=== PATIENT | male | born 1945 | race African-American/Black ===

== ENCOUNTER 2018-10-26 16:26 | Inpatient (IN) | payer MEDICAID, MEDICARE ==
[~2018-10-26] VITALS: Ht 172.7 cm; Wt 65.9 kg
[2018-10-26 16:31] VITALS: BP 138/76
--- NOTE | 2018-10-26 16:31 | NUR ---
ED Nurse Note: pt brought in by R 26 pt was c/o eye pain, chest pain. per pt eye pain is more prominent than chest. per pt pain 6/10 for his eyes
--- NOTE | 2018-10-26 16:32 | NUR ---
ED Nurse Note: per pt he took cocaine today.
--- NOTE | 2018-10-26 16:46 | Emergency Room Report ---
History of Present Illness General Chief Complaint: Chest Pain Source: Patient Present Illness HPI 72-year-old male with a history of psychiatric disease, p/w chest pain for 2 days. Chest pain started after snorting cocaine. Localized to substernal area, no radiation to back or other areas, sharp in nature, multiple episodes. +SOB. Denies palpitations, diaphoresis, n/v. Denies fever, chills, cough, abd pain. Denies trauma. \Patient has never had a stress test. Allergies: Coded Allergies: No Known Allergies (Unverified , 10/26/18) Patient History Past Medical History: see triage record Past Surgical History: none Pertinent Family History: none Reviewed Nursing Documentation: PMH: Agreed; PSxH: Agreed Nursing Documentation-PMH Past Medical History: No History, Except For Hx Asthma: Yes Review of Systems All Other Systems: negative except mentioned in HPI Physical Exam Vital Signs Date Time Temp Pulse Resp B/P (MAP) Pulse Ox O2 Delivery O2 Flow Rate FiO2 10/26/18 16:21 98.4 86 20 138/76 98 Room Air Sp02 EP Interpretation: reviewed, normal General Appearance: alert, GCS 15, non-toxic, mild distress Head: normocephalic, atraumatic Eyes: bilateral eye normal inspection, bilateral eye PERRL, bilateral eye EOMI ENT: normal ENT inspection, normal pharynx, normal voice, moist mucus membranes Neck: normal inspection, full range of motion, supple Respiratory: normal inspection, lungs clear, normal breath sounds, no respiratory distress, no retraction, no wheezing, speaking full sentences, chest symmetrical Cardiovascular #1: normal inspection, regular rate, rhythm, no edema, normal capillary refill Cardiovascular #2: 2+ radial (R), 2+ radial (L) Gastrointestinal: normal inspection, non tender, soft, non-distended, no guarding Genitourinary: no CVA tenderness Musculoskeletal: normal inspection, back normal, normal range of motion, non- tender Neurologic: normal inspection, alert, oriented x3, responsive, motor strength/ tone normal, sensory intact, normal gait, speech normal Psychiatric: normal inspection, judgement/insight normal, memory normal Skin: normal inspection, normal color, no rash, warm/dry, well hydrated, normal turgor Medical Decision Making Diagnostic Impression: Primary Impression: Acute coronary syndrome Additional Impressions: Chest pain Leukopenia Cocaine abuse ER Course 72-year-old male presenting with chest pain DDX: ACS vs. CHF vs. pneumonia vs. gastritis/GERD vs. pneumothorax versus drug- induced cocaine chest pain Plan: IV access, obtain labs including troponin, EKG, CXR ASA ER course: Patient was treated with ASA. Patient has remained on a monitor, HD stable Disposition: Patient requires admission for chest pain DW Dr Gr Please note that this Emergency Department Report was dictated using [employer] safety lead technology software, occasionally this can lead to erroneous entry secondary to interpretation by the dictation equipment. EKG Diagnostic Results EP Interpretation: Yes Rate: normal Rhythm: NSR ST Segments: No acute changes ASA given to patient: Yes Rhythm Strip EP Interpretation: Yes Rate: 70 Rhythm: NSR, no PVCs, no ectopy Chest X-ray CXR: Ordered: Yes 1 view Indication: Chest pain EP interpretation: Yes Interpretation: No consolidation, no effusion, no PTX, no acute cardiopulmonary disease Impression: No acute disease Electronically signed by Eleanor Mayo MD Laboratory Tests Test 10/26/18 16:55 10/26/18 18:45 White Blood Count 2.9 K/UL (4.8-10.8) L Red Blood Count 4.69 M/UL (4.70-6.10) L Hemoglobin 15.5 G/DL (14.2-18.0) Hematocrit 46.1 % (42.0-52.0) Mean Corpuscular Volume 98 FL (80-99) Mean Corpuscular Hemoglobin 33.1 PG (27.0-31.0) H Mean Corpuscular Hemoglobin Concent 33.7 G/DL (32.0-36.0) Red Cell Distribution Width 10.9 % (11.6-14.8) L Platelet Count 170 K/UL (150-450) Mean Platelet Volume 6.2 FL (6.5-10.1) L Neutrophils (%) (Auto) 61.5 % (45.0-75.0) Lymphocytes (%) (Auto) 27.1 % (20.0-45.0) Monocytes (%) (Auto) 9.5 % (1.0-10.0) Eosinophils (%) (Auto) 0.7 % (0.0-3.0) Basophils (%) (Auto) 1.2 % (0.0-2.0) Sodium Level 143 MMOL/L (136-145) Potassium Level 3.9 MMOL/L (3.5-5.1) Chloride Level 105 MMOL/L (98-107) Carbon Dioxide Level 31 MMOL/L (21-32) Anion Gap 7 mmol/L (5-15) Blood Urea Nitrogen 13 mg/dL (7-18) Creatinine 1.2 MG/DL (0.55-1.30) Estimate Glomerular Filtration Rate mL/min (>60) Glucose Level 71 MG/DL (74-106) L Calcium Level 9.6 MG/DL (8.5-10.1) Total Bilirubin 0.3 MG/DL (0.2-1.0) Aspartate Amino Transferase (AST) 82 U/L (15-37) H Alanine Aminotransferase (ALT) 118 U/L (12-78) H Alkaline Phosphatase 104 U/L (46-116) Troponin I 0.002 ng/mL (0.000-0.056) Pro-B-Type Natriuretic Peptide 14 pg/mL (0-125) Total Protein 8.0 G/DL (6.4-8.2) Albumin 3.6 G/DL (3.4-5.0) Globulin 4.4 g/dL Albumin/Globulin Ratio 0.8 (1.0-2.7) L HIV (1&2) Antibody Rapid Negative (NEGATIVE) Urine Color Yellow Urine Appearance Clear Urine pH 5 (4.5-8.0) Urine Specific [place] 1.020 (1.005-1.035) Urine Protein Negative (NEGATIVE) Urine Glucose (UA) Negative (NEGATIVE) Urine Ketones Negative (NEGATIVE) Urine Blood 2+ (NEGATIVE) H Urine Nitrite Negative (NEGATIVE) Urine Bilirubin Negative (NEGATIVE) Urine Urobilinogen Normal MG/DL (0.0-1.0) Urine Leukocyte Esterase 1+ (NEGATIVE) H Urine RBC Pending Urine WBC Pending Urine Squamous Epithelial Cells Pending Urine Bacteria Pending Urine Opiates Screen Negative (NEGATIVE) Urine Barbiturates Screen Negative (NEGATIVE) Phencyclidine (PCP) Screen Negative (NEGATIVE) Urine Amphetamines Screen Negative (NEGATIVE) Urine Benzodiazepines Screen Negative (NEGATIVE) Urine Cocaine Screen Positive (NEGATIVE) H Urine Marijuana (THC) Screen Negative (NEGATIVE) Last Vital Signs Date Time Temp Pulse Resp B/P (MAP) Pulse Ox O2 Delivery O2 Flow Rate FiO2 10/26/18 16:21 98.4 86 20 138/76 98 Room Air Disposition: ADMITTED INPATIENT Condition: Serious Eleanor Mayo M.D. Oct 26, 2018 16:46
[2018-10-26 17:22] LABS: HEMATOCRIT 46.1 % (42.0-52.0); HEMOGLOBIN 15.5 G/DL (14.2-18.0); MEAN CORPUSCULAR VOLUME 98 FL (80-99); PLATELET COUNT 170 K/UL (150-450); RED BLOOD COUNT 4.69 M/UL (4.70-6.10); RED CELL DISTRIBUTION WIDTH 10.9 % (11.6-14.8); WHITE BLOOD COUNT 2.9 K/UL (4.8-10.8)
[2018-10-26 17:23] LABS: NEUTROPHILS % (AUTO) 61.5 % (45.0-75.0)
[2018-10-26 17:24] LABS: BASOPHILS % (AUTO) 1.2 % (0.0-2.0); EOSINOPHILS % (AUTO) 0.7 % (0.0-3.0); LYMPHOCYTES % (AUTO) 27.1 % (20.0-45.0); MONOCYTES % (AUTO) 9.5 % (1.0-10.0)
[2018-10-26 17:33] LABS: ANION GAP 7 mmol/L (5-15); BLOOD UREA NITROGEN 13 mg/dL (7-18); CALCIUM 9.6 MG/DL (8.5-10.1); CARBON DIOXIDE 31 MMOL/L (21-32); CHLORIDE 105 MMOL/L (98-107); CREATININE 1.2 MG/DL (0.55-1.30); POTASSIUM 3.9 MMOL/L (3.5-5.1); SODIUM 143 MMOL/L (136-145)
[2018-10-26 17:43] LABS: ALANINE AMINOTRANSFERASE 118 U/L (12-78); ALBUMIN 3.6 G/DL (3.4-5.0); ALBUMIN/GLOBULIN RATIO 0.8 (1.0-2.7); ALKALINE PHOSPHATASE 104 U/L (46-116); ASPARTATE AMINO TRANSFERASE 82 U/L (15-37); BILIRUBIN,TOTAL 0.3 MG/DL (0.2-1.0)
[2018-10-26 18:07] VITALS: BP 119/83
--- NOTE | 2018-10-26 18:20 | NUR ---
ED Nurse Note: urine sent down to the lab.
--- NOTE | 2018-10-26 18:52 | NUR ---
ED Nurse Note: spoke with dental laboratory technician to run urine test
[2018-10-26 19:01] LABS: APPEARANCE,URINE CLEAR; BILIRUBIN, URINE NEGATIVE (NEGATIVE); GLUCOSE, URINE (UA) NEGATIVE (NEGATIVE); KETONES,URINE NEGATIVE (NEGATIVE); LEUKOCYTE ESTERASE ,URINE 1+ (NEGATIVE); NITRITE,URINE NEGATIVE (NEGATIVE); PH,URINE 5 (4.5-8.0); PROTEIN,URINE NEGATIVE (NEGATIVE); UROBILINOGEN,URINE NORMAL MG/DL (0.0-1.0)
[2018-10-26 19:04] LABS: COLOR,URINE YELLOW
--- NOTE | 2018-10-26 19:05 | NUR ---
ED Nurse Note: pt refused VRE and CRE swab. MRSA completed sent to lab.
--- NOTE | 2018-10-26 19:11 | NUR ---
ED Nurse Note: Telephone report was attempted to be endorsed to bogdan valle. unable to give report.
[2018-10-26] MEDS ORDERED: cefTRIAXone 1 GM in D5W 55 ML IVPB ONE (19:15)
--- NOTE | 2018-10-26 19:28 | NUR ---
ED Nurse Note: Telephone report given to JOHN Gardner.
--- NOTE | 2018-10-26 19:43 | NUR ---
HAND-OFF: Report given to JOHN Cortes.
--- NOTE | 2018-10-26 19:55 | NUR ---
NURSE NOTES: Received report from Rasheed basurto ED RN. Pt came to 2E via [facility] and was able to walk to the bed from [facility] w/ tiler's assistant. Pt has bilateral vision limit. C/O CP 4/10 in mid sternal area, 2L NC applied. Belonging checked and electrician's helper was applied. No home medications recorded but mentioned few med by pt. Pt also mentioned that he has no home and requested to see clinical social work aide. Will contact PCP for admission orders and socai service consult. Addendum: 10/26/18 at 2044 by JESUS WATSON RN Called and left message to Dr. Gr at for admission orders. Awaiting call back.
[2018-10-26 20:00] VITALS: BP_SYST 121; BP_SYST 132; BP_DIAS 74; BP_DIAS 78
[2018-10-26] MEDS ORDERED: Nitroglycerin Subl 0.4mg tab SL PRN (22:15)
[2018-10-26] MEDS ORDERED: Albuterol/Ipratropium 3ml neb HHN PRN (22:15)
[2018-10-27] VITALS: BP 132/74
[2018-10-27 04:00] VITALS: BP 118/73
--- NOTE | 2018-10-27 07:29 | NUR ---
HAND-OFF: Report given to Grisel Marsh Rn. Stable condition.
--- NOTE | 2018-10-27 07:36 | NUR ---
NURSE NOTES: Received report from JOHN Gardner. Patient asleep and is in stable condition. No acute distress/SOB noted. Will continue plan of care.
[2018-10-27 08:00] VITALS: BP 100/57
--- NOTE | 2018-10-27 08:48 | Consultation ---
History of Present Illness General Date patient seen: Oct 27, 2018 Time patient seen: 08:15 - am Chief Complaint: Chest pain Referring physician: Dr. Gr Reason for Consultation: Pain management Present Illness HPI Patient was admitted into the hospital under the care of Dr. Gr due to chest pain caused by cocaine abuse will be seen by Pou[facility] Cr[facility] Ladle Troponin have been negative. At this time is c/o generalized body pain on Tylenol which has helped. We were consulted so patient has adequate pain control while her in the hospital. Allergies: Coded Allergies: No Known Allergies (Unverified , 10/26/18) Patient History Healthcare decision maker Resuscitation status Full Code Advanced Directive on File No Patient History Narrative Asthma Social History Social History: (1) Cocaine abuse Review of Systems Constitutional: Reports: weakness Eye: Reports: no symptoms ENT: Reports: no symptoms Respiratory: Reports: shortness of breath Cardiovascular: Reports: chest pain Gastrointestinal: Reports: no symptoms Genitourinary: Reports: no symptoms Musculoskeletal: Reports: no symptoms Skin: Reports: no symptoms Psychiatric: Reports: no symptoms Neurological: Reports: no symptoms Endocrine: Reports: no symptoms Hematologic/Lymphatic: Reports: no symptoms Physical Exam General Appearance: no apparent distress, alert HEENT: PERRL, EOMI Neck: non-tender, supple Respiratory/Chest: decreased breath sounds Cardiovascular/Chest: normal rate, regular rhythm Abdomen: non tender, soft Extremities: normal range of motion, non-tender Skin Exam: warm/dry Neurologic: alert, oriented x 3 Last 24 Hour Vital Signs Date Time Temp Pulse Resp B/P (MAP) Pulse Ox O2 Delivery O2 Flow Rate FiO2 10/27/18 08:00 98.4 73 21 100/57 (71) 96 10/27/18 07:35 70 10/27/18 04:00 97.0 83 20 118/73 (88) 94 10/27/18 03:21 69 10/27/18 00:00 98.0 78 20 132/74 (93) 96 10/26/18 23:25 82 10/26/18 21:00 Nasal Cannula 2.0 10/26/18 20:53 Nasal Cannula 2.0 10/26/18 20:00 98.0 80 20 121/78 (92) 96 10/26/18 19:44 94 28 112/79 100 Room Air 10/26/18 18:07 84 21 119/83 100 Room Air 10/26/18 16:31 98.4 87 20 138/76 98 Room Air 10/26/18 16:31 86 20 Room Air 10/26/18 16:21 98.4 86 20 138/76 98 Room Air Intake and Output 10/26/18 10/27/18 18:59 06:59 Output Total 0 ml Balance 0 ml Output Urine Total 0 ml Laboratory Tests Test 10/26/18 16:55 10/26/18 18:45 White Blood Count 2.9 K/UL (4.8-10.8) L Red Blood Count 4.69 M/UL (4.70-6.10) L Hemoglobin 15.5 G/DL (14.2-18.0) Hematocrit 46.1 % (42.0-52.0) Mean Corpuscular Volume 98 FL (80-99) Mean Corpuscular Hemoglobin 33.1 PG (27.0-31.0) H Mean Corpuscular Hemoglobin Concent 33.7 G/DL (32.0-36.0) Red Cell Distribution Width 10.9 % (11.6-14.8) L Platelet Count 170 K/UL (150-450) Mean Platelet Volume 6.2 FL (6.5-10.1) L Neutrophils (%) (Auto) 61.5 % (45.0-75.0) Lymphocytes (%) (Auto) 27.1 % (20.0-45.0) Monocytes (%) (Auto) 9.5 % (1.0-10.0) Eosinophils (%) (Auto) 0.7 % (0.0-3.0) Basophils (%) (Auto) 1.2 % (0.0-2.0) Sodium Level 143 MMOL/L (136-145) Potassium Level 3.9 MMOL/L (3.5-5.1) Chloride Level 105 MMOL/L (98-107) Carbon Dioxide Level 31 MMOL/L (21-32) Anion Gap 7 mmol/L (5-15) Blood Urea Nitrogen 13 mg/dL (7-18) Creatinine 1.2 MG/DL (0.55-1.30) Estimat Glomerular Filtration Rate mL/min (>60) Glucose Level 71 MG/DL (74-106) L Calcium Level 9.6 MG/DL (8.5-10.1) Total Bilirubin 0.3 MG/DL (0.2-1.0) Aspartate Amino Transf (AST/SGOT) 82 U/L (15-37) H Alanine Aminotransferase (ALT/SGPT) 118 U/L (12-78) H Alkaline Phosphatase 104 U/L (46-116) Troponin I 0.002 ng/mL (0.000-0.056) Pro-B-Type Natriuretic Peptide 14 pg/mL (0-125) Total Protein 8.0 G/DL (6.4-8.2) Albumin 3.6 G/DL (3.4-5.0) Globulin 4.4 g/dL Albumin/Globulin Ratio 0.8 (1.0-2.7) L HIV (1&2) Antibody Rapid Negative (NEGATIVE) Urine Color Yellow Urine Appearance Clear Urine pH 5 (4.5-8.0) Urine Specific [place] 1.020 (1.005-1.035) Urine Protein Negative (NEGATIVE) Urine Glucose (UA) Negative (NEGATIVE) Urine Ketones Negative (NEGATIVE) Urine Blood 2+ (NEGATIVE) H Urine Nitrite Negative (NEGATIVE) Urine Bilirubin Negative (NEGATIVE) Urine Urobilinogen Normal MG/DL (0.0-1.0) Urine Leukocyte Esterase 1+ (NEGATIVE) H Urine RBC 2-4 /HPF (0 - 0) H Urine WBC 20-30 /HPF (0 - 0) H Urine Squamous Epithelial Cells Occasional /LPF Urine Bacteria Moderate /HPF (NONE) H Urine Opiates Screen Negative (NEGATIVE) Urine Barbiturates Screen Negative (NEGATIVE) Phencyclidine (PCP) Screen Negative (NEGATIVE) Urine Amphetamines Screen Negative (NEGATIVE) Urine Benzodiazepines Screen Negative (NEGATIVE) Urine Cocaine Screen Positive (NEGATIVE) H Urine Marijuana (THC) Screen Negative (NEGATIVE) Microbiology Date/Time Source Procedure Growth Status 10/27/18 05:00 Rectum Received Height (Feet): 5 Height (Inches): 8.00 Weight (Pounds): 145 Medications Current Medications Medications (Trade) Dose Ordered Sig/Jona Route PRN Reason Start Time Stop Time Status Last Admin Dose Admin Acetaminophen (Tylenol) 650 mg Q4H PRN ORAL Mild Pain (Pain Scale 1-3) 10/26/18 22:15 11/25/18 22:14 Acetaminophen (Tylenol) 650 mg Q4H PRN ORAL fever 10/26/18 22:15 11/25/18 22:14 Al Hydroxide/Mg Hydroxide (Mylanta) 30 ml EVERY 4 HOURS PRN ORAL Abdominal cramps 10/26/18 23:15 11/25/18 23:14 Albuterol/ Ipratropium (Albuterol/ Ipratropium) 3 ml EVERY 4 HOURS PRN HHN Shortness of Breath 10/26/18 22:15 10/31/18 22:14 Dextrose (Dextrose 50%) 25 ml Q30M PRN IV Hypoglycemia 10/26/18 22:15 11/25/18 22:14 Dextrose (Dextrose 50%) 50 ml Q30M PRN IV Hypoglycemia 10/26/18 22:15 11/25/18 22:14 Nitroglycerin (Ntg) 0.4 mg Q5M PRN SL Prn Chest Pain 10/26/18 22:15 11/25/18 22:14 Pantoprazole (Protonix) 40 mg ACBREAKFAST ORAL 10/27/18 06:30 11/26/18 06:29 10/27/18 06:01 Assessment/Plan Assessment/Plan (1) Cocaine Abuse (2) Multiple Joint pain (3) Multiple Joint OA Pt will be continued on Tylenol D/w Dr. Enamorado and he concurred Thank you for the courtesy of this consultation. Jayden Mistry Oct 27, 2018 08:48
[2018-10-27 09:18] LABS: HEMATOCRIT 39.3 % (42.0-52.0); HEMOGLOBIN 13.2 G/DL (14.2-18.0); MEAN CORPUSCULAR VOLUME 99 FL (80-99); PLATELET COUNT 148 K/UL (150-450); RED BLOOD COUNT 3.96 M/UL (4.70-6.10); RED CELL DISTRIBUTION WIDTH 11.1 % (11.6-14.8); WHITE BLOOD COUNT 2.9 K/UL (4.8-10.8)
[2018-10-27 09:35] LABS: ANION GAP 7 mmol/L (5-15); BLOOD UREA NITROGEN 17 mg/dL (7-18); CALCIUM 8.9 MG/DL (8.5-10.1); CARBON DIOXIDE 27 MMOL/L (21-32); CHLORIDE 108 MMOL/L (98-107); CREATININE 1.2 MG/DL (0.55-1.30); POTASSIUM 3.8 MMOL/L (3.5-5.1); SODIUM 142 MMOL/L (136-145)
--- NOTE | 2018-10-27 10:58 | Diagnostic Imaging Report ---
Indication: chest pain Comparison: None A single view chest radiograph was obtained. Findings: Cardiomediastinal appearance is within normal limits for age. The lungs are clear. Pulmonary vascularity is appropriate. The diaphragmatic contour is smooth and costophrenic angles are sharp. No pleural effusions are identified. The bones are unremarkable. Impression: No acute findings
[2018-10-27 12:00] VITALS: BP 106/60
--- NOTE | 2018-10-27 15:27 | Consultation ---
History of Present Illness General Date patient seen: Oct 27, 2018 Chief Complaint: Chest Pain Present Illness Allergies: Coded Allergies: No Known Allergies (Unverified , 10/26/18) Patient History Healthcare decision maker Resuscitation status Full Code Advanced Directive on File No Physical Exam Last 24 Hour Vital Signs Date Time Temp Pulse Resp B/P (MAP) Pulse Ox O2 Delivery O2 Flow Rate FiO2 10/27/18 12:00 98.6 75 20 106/60 (75) 99 10/27/18 12:00 68 10/27/18 10:08 70 18 Room Air 21 10/27/18 09:00 Nasal Cannula 2.0 10/27/18 08:00 98.4 73 21 100/57 (71) 96 10/27/18 07:35 70 10/27/18 04:00 97.0 83 20 118/73 (88) 94 10/27/18 03:21 69 10/27/18 00:00 98.0 78 20 132/74 (93) 96 10/26/18 23:25 82 10/26/18 21:00 Nasal Cannula 2.0 10/26/18 20:53 Nasal Cannula 2.0 10/26/18 20:00 98.0 80 20 121/78 (92) 96 10/26/18 19:44 94 28 112/79 100 Room Air 10/26/18 18:07 84 21 119/83 100 Room Air 10/26/18 16:31 98.4 87 20 138/76 98 Room Air 10/26/18 16:31 86 20 Room Air 10/26/18 16:21 98.4 86 20 138/76 98 Room Air Intake and Output 10/26/18 10/27/18 19:00 07:00 Output Total 0 ml Balance 0 ml Output Urine Total 0 ml Laboratory Tests Test 10/26/18 16:55 10/26/18 18:45 10/27/18 08:40 White Blood Count 2.9 K/UL (4.8-10.8) L 2.9 K/UL (4.8-10.8) L Red Blood Count 4.69 M/UL (4.70-6.10) L 3.96 M/UL (4.70-6.10) L Hemoglobin 15.5 G/DL (14.2-18.0) 13.2 G/DL (14.2-18.0) L Hematocrit 46.1 % (42.0-52.0) 39.3 % (42.0-52.0) L Mean Corpuscular Volume 98 FL (80-99) 99 FL (80-99) Mean Corpuscular Hemoglobin 33.1 PG (27.0-31.0) H 33.2 PG (27.0-31.0) H Mean Corpuscular Hemoglobin Concent 33.7 G/DL (32.0-36.0) 33.5 G/DL (32.0-36.0) Red Cell Distribution Width 10.9 % (11.6-14.8) L 11.1 % (11.6-14.8) L Platelet Count 170 K/UL (150-450) 148 K/UL (150-450) L Mean Platelet Volume 6.2 FL (6.5-10.1) L 7.2 FL (6.5-10.1) Neutrophils (%) (Auto) 61.5 % (45.0-75.0) % (45.0-75.0) Lymphocytes (%) (Auto) 27.1 % (20.0-45.0) % (20.0-45.0) Monocytes (%) (Auto) 9.5 % (1.0-10.0) % (1.0-10.0) Eosinophils (%) (Auto) 0.7 % (0.0-3.0) % (0.0-3.0) Basophils (%) (Auto) 1.2 % (0.0-2.0) % (0.0-2.0) Sodium Level 143 MMOL/L (136-145) 142 MMOL/L (136-145) Potassium Level 3.9 MMOL/L (3.5-5.1) 3.8 MMOL/L (3.5-5.1) Chloride Level 105 MMOL/L (98-107) 108 MMOL/L (98-107) H Carbon Dioxide Level 31 MMOL/L (21-32) 27 MMOL/L (21-32) Anion Gap 7 mmol/L (5-15) 7 mmol/L (5-15) Blood Urea Nitrogen 13 mg/dL (7-18) 17 mg/dL (7-18) Creatinine 1.2 MG/DL (0.55-1.30) 1.2 MG/DL (0.55-1.30) Estimat Glomerular Filtration Rate mL/min (>60) mL/min (>60) Glucose Level 71 MG/DL (74-106) L 139 MG/DL (74-106) H Calcium Level 9.6 MG/DL (8.5-10.1) 8.9 MG/DL (8.5-10.1) Total Bilirubin 0.3 MG/DL (0.2-1.0) Aspartate Amino Transf (AST/SGOT) 82 U/L (15-37) H Alanine Aminotransferase (ALT/SGPT) 118 U/L (12-78) H Alkaline Phosphatase 104 U/L (46-116) Troponin I 0.002 ng/mL (0.000-0.056) 0.021 ng/mL (0.000-0.056) Pro-B-Type Natriuretic Peptide 14 pg/mL (0-125) Total Protein 8.0 G/DL (6.4-8.2) Albumin 3.6 G/DL (3.4-5.0) Globulin 4.4 g/dL Albumin/Globulin Ratio 0.8 (1.0-2.7) L HIV (1&2) Antibody Rapid Negative (NEGATIVE) Urine Color Yellow Urine Appearance Clear Urine pH 5 (4.5-8.0) Urine Specific [place] 1.020 (1.005-1.035) Urine Protein Negative (NEGATIVE) Urine Glucose (UA) Negative (NEGATIVE) Urine Ketones Negative (NEGATIVE) Urine Blood 2+ (NEGATIVE) H Urine Nitrite Negative (NEGATIVE) Urine Bilirubin Negative (NEGATIVE) Urine Urobilinogen Normal MG/DL (0.0-1.0) Urine Leukocyte Esterase 1+ (NEGATIVE) H Urine RBC 2-4 /HPF (0 - 0) H Urine WBC 20-30 /HPF (0 - 0) H Urine Squamous Epithelial Cells Occasional /LPF Urine Bacteria Moderate /HPF (NONE) H Urine Opiates Screen Negative (NEGATIVE) Urine Barbiturates Screen Negative (NEGATIVE) Phencyclidine (PCP) Screen Negative (NEGATIVE) Urine Amphetamines Screen Negative (NEGATIVE) Urine Benzodiazepines Screen Negative (NEGATIVE) Urine Cocaine Screen Positive (NEGATIVE) H Urine Marijuana (THC) Screen Negative (NEGATIVE) Differential Total Cells Counted 100 Neutrophils % (Manual) 58 % (45-75) Lymphocytes % (Manual) 35 % (20-45) Monocytes % (Manual) 7 % (1-10) Eosinophils % (Manual) 0 % (0-3) Basophils % (Manual) 0 % (0-2) Band Neutrophils 0 % (0-8) Platelet Estimate Decreased L Platelet Morphology Normal Macrocytosis 1+ Microbiology Date/Time Source Procedure Growth Status 10/26/18 18:45 Urine,Clean Catch Urine Culture - Preliminary NO GROWTH Resulted 10/27/18 05:00 Rectum Received Height (Feet): 5 Height (Inches): 8.00 Weight (Pounds): 145 Medications Current Medications Medications (Trade) Dose Ordered Sig/Jona Route PRN Reason Start Time Stop Time Status Last Admin Dose Admin Acetaminophen (Tylenol) 650 mg Q4H PRN ORAL Mild Pain (Pain Scale 1-3) 10/26/18 22:15 11/25/18 22:14 Acetaminophen (Tylenol) 650 mg Q4H PRN ORAL fever 10/26/18 22:15 11/25/18 22:14 Al Hydroxide/Mg Hydroxide (Mylanta) 30 ml EVERY 4 HOURS PRN ORAL Abdominal cramps 10/26/18 23:15 11/25/18 23:14 Albuterol/ Ipratropium (Albuterol/ Ipratropium) 3 ml EVERY 4 HOURS PRN HHN Shortness of Breath 10/26/18 22:15 10/31/18 22:14 Dextrose (Dextrose 50%) 25 ml Q30M PRN IV Hypoglycemia 10/26/18 22:15 11/25/18 22:14 Dextrose (Dextrose 50%) 50 ml Q30M PRN IV Hypoglycemia 10/26/18 22:15 11/25/18 22:14 Nitroglycerin (Ntg) 0.4 mg Q5M PRN SL Prn Chest Pain 10/26/18 22:15 11/25/18 22:14 Pantoprazole (Protonix) 40 mg ACBREAKFAST ORAL 10/27/18 06:30 11/26/18 06:29 10/27/18 06:01 Assessment/Plan Assessment/Plan Hematology Consultation Note REQ MD: Melissa Gr RFC: Pancytopenia DOS: 10/27/18 ID 72-year-old male with a history of psychiatric disease, p/w chest pain for 2 days. Chest pain started after snorting cocaine. Localized to substernal area, no radiation to back or other areas, sharp in nature, multiple episodes. +SOB. Denies palpitations, diaphoresis, n/v. Denies fever, chills, cough, abd pain. Denies trauma. Patient has never had a stress test. He was noticed this am to have developed a pancytopenia and heme service was consulted for further evaluation and treatment Coded Allergies: No Known Allergies (Unverified , 10/26/18) Past Medical History: see triage record Past Surgical History: none Pertinent Family History: none Reviewed Nursing Documentation: PMH: Agreed; PSxH: Agreed Past Medical History: No History, Except For Hx Asthma: Yes Review of Systems: negative except mentioned in HPI ROS: Constitutional: No fever, no chills, no night sweats, no fatigue Skin: No rashes, lumps, itchiness, dryness HEENT: No [place], ear ache, visual changes, double vision, nosebleeds, sore throat, lumps, swollen glands Breasts: No lumps, pain, discharge Pulmonary: No cough, sputum, shortness of breath, coughing up blood, hemoptysis Cardiovascular: No chest pain, tightness, palpitations, syncope, claudication, orthopnea, PND GI: No nausea, vomiting, diarrhea, melena, hematochezia, change in appetite, abdominal pain : No dysuria, frequency, urgency, urinary incontinence, foamy urine Musculoskeletal: No joint swelling or muscle pain, trauma, back pain Neurologic: No dizziness, fainting, seizures, changes in smell or taste Psychiatric: No nervousness, stress, or depression, anxiety, hallucinations Endocrine: No weight change, heat or cold intolerance, tremor, insomnia Physical Exam General Appearance: A+O x3, NAD HEENT: normocephalic, atraumatic Neck: non-tender, normal alignment Respiratory/Chest: chest wall non-tender, lungs clear Cardiovascular/Chest: normal peripheral pulses, normal rate Abdomen: normal bowel sounds, non tender Extremities: normal range of motion Laboratory Tests Test 10/26/18 16:55 10/26/18 18:45 10/27/18 08:40 White Blood Count 2.9 K/UL (4.8-10.8) L 2.9 K/UL (4.8-10.8) L Red Blood Count 4.69 M/UL (4.70-6.10) L 3.96 M/UL (4.70-6.10) L Hemoglobin 15.5 G/DL (14.2-18.0) 13.2 G/DL (14.2-18.0) L Hematocrit 46.1 % (42.0-52.0) 39.3 % (42.0-52.0) L Mean Corpuscular Volume 98 FL (80-99) 99 FL (80-99) Mean Corpuscular Hemoglobin 33.1 PG (27.0-31.0) H 33.2 PG (27.0-31.0) H Mean Corpuscular Hemoglobin Concent 33.7 G/DL (32.0-36.0) 33.5 G/DL (32.0-36.0) Red Cell Distribution Width 10.9 % (11.6-14.8) L 11.1 % (11.6-14.8) L Platelet Count 170 K/UL (150-450) 148 K/UL (150-450) L Mean Platelet Volume 6.2 FL (6.5-10.1) L 7.2 FL (6.5-10.1) Neutrophils (%) (Auto) 61.5 % (45.0-75.0) % (45.0-75.0) Lymphocytes (%) (Auto) 27.1 % (20.0-45.0) % (20.0-45.0) Monocytes (%) (Auto) 9.5 % (1.0-10.0) % (1.0-10.0) Eosinophils (%) (Auto) 0.7 % (0.0-3.0) % (0.0-3.0) Basophils (%) (Auto) 1.2 % (0.0-2.0) % (0.0-2.0) Sodium Level 143 MMOL/L (136-145) 142 MMOL/L (136-145) Potassium Level 3.9 MMOL/L (3.5-5.1) 3.8 MMOL/L (3.5-5.1) Chloride Level 105 MMOL/L (98-107) 108 MMOL/L (98-107) H Carbon Dioxide Level 31 MMOL/L (21-32) 27 MMOL/L (21-32) Anion Gap 7 mmol/L (5-15) 7 mmol/L (5-15) Blood Urea Nitrogen 13 mg/dL (7-18) 17 mg/dL (7-18) Creatinine 1.2 MG/DL (0.55-1.30) 1.2 MG/DL (0.55-1.30) Estimat Glomerular Filtration Rate mL/min (>60) mL/min (>60) Glucose Level 71 MG/DL (74-106) L 139 MG/DL (74-106) H Calcium Level 9.6 MG/DL (8.5-10.1) 8.9 MG/DL (8.5-10.1) Total Bilirubin 0.3 MG/DL (0.2-1.0) Aspartate Amino Transf (AST/SGOT) 82 U/L (15-37) H Alanine Aminotransferase (ALT/SGPT) 118 U/L (12-78) H Alkaline Phosphatase 104 U/L (46-116) Troponin I 0.002 ng/mL (0.000-0.056) 0.021 ng/mL (0.000-0.056) Pro-B-Type Natriuretic Peptide 14 pg/mL (0-125) Total Protein 8.0 G/DL (6.4-8.2) Albumin 3.6 G/DL (3.4-5.0) Globulin 4.4 g/dL Albumin/Globulin Ratio 0.8 (1.0-2.7) L HIV (1&2) Antibody Rapid Negative (NEGATIVE) Urine Color Yellow Urine Appearance Clear Urine pH 5 (4.5-8.0) Urine Specific [place] 1.020 (1.005-1.035) Urine Protein Negative (NEGATIVE) Urine Glucose (UA) Negative (NEGATIVE) Urine Ketones Negative (NEGATIVE) Urine Blood 2+ (NEGATIVE) H Urine Nitrite Negative (NEGATIVE) Urine Bilirubin Negative (NEGATIVE) Urine Urobilinogen Normal MG/DL (0.0-1.0) Urine Leukocyte Esterase 1+ (NEGATIVE) H Urine RBC 2-4 /HPF (0 - 0) H Urine WBC 20-30 /HPF (0 - 0) H Urine Squamous Epithelial Cells Occasional /LPF Urine Bacteria Moderate /HPF (NONE) H Urine Opiates Screen Negative (NEGATIVE) Urine Barbiturates Screen Negative (NEGATIVE) Phencyclidine (PCP) Screen Negative (NEGATIVE) Urine Amphetamines Screen Negative (NEGATIVE) Urine Benzodiazepines Screen Negative (NEGATIVE) Urine Cocaine Screen Positive (NEGATIVE) H Urine Marijuana (THC) Screen Negative (NEGATIVE) Differential Total Cells Counted 100 Neutrophils % (Manual) 58 % (45-75) Lymphocytes % (Manual) 35 % (20-45) Monocytes % (Manual) 7 % (1-10) Eosinophils % (Manual) 0 % (0-3) Basophils % (Manual) 0 % (0-2) Band Neutrophils 0 % (0-8) Platelet Estimate Decreased L Platelet Morphology Normal Macrocytosis 1+ Assessment and Recs # Pancytopenia -- new-onset, do not have patient's basleine, could be related to drug abuse, v medications, v etoh, v other toxic ingestion or a bone marrow process --> history of cocaine use recently, and recommend cessation --> us of the abdomen has been orderd --> hep and hiv ordered as well --> retic and ldh ordered to r/o hemolysis --> neupogen to give to maintain anc >1000 --> reverse isolation indicated if low ANC # Anemia of chronic disease --> obtain anemia w/u --> hgb goal >7, transfuse as needed # Chest pain -- r/o Acute coronary syndrome --> cardiology service has been consulted --> asa was given # Cocaine abuse The timing of this note does not necessarily reflect the time of the patient was seen Greatly appreciate consultation! Iván Gonzalez MD Oct 27, 2018 15:27
[2018-10-27 16:00] VITALS: BP 113/55
--- NOTE | 2018-10-27 16:15 | Cardiology Report ---
APPROVED REPORT EKG Measurement Heart [id number] Normal sinus rhythm Normal ECG
--- NOTE | 2018-10-27 17:00 | Consultation ---
DATE OF CONSULTATION: 10/27/2018 INFECTIOUS DISEASE CONSULTATION CONSULTING PHYSICIAN: Chente Canchola M.D. PRIMARY ATTENDING PHYSICIAN: Azucena Gr M.D. REASON FOR CONSULTATION: UTI, leukopenia. HISTORY OF PRESENT ILLNESS: This is a 72-year-old male admitted last night complaining of chest pain after snorting cocaine. He had low WBC count of 2.9 and also pyuria in UA. He is a poor historian. PAST MEDICAL HISTORY: Significant for psychiatric disorder. ALLERGIES: No known drug allergy. MEDICATIONS: Protonix, Mylanta, albuterol, ipratropium inhaler, nitroglycerin, Tylenol. Got a dose of aspirin and ceftriaxone in the ER. SOCIAL HISTORY: He is originally from [place]. Single. He has no kids. REVIEW OF SYSTEMS: The patient is poor historian. Denies any pain, fever, coughing, shortness of breath, nausea, vomiting, or problem passing urine. PHYSICAL EXAMINATION: VITAL SIGNS: Temperature 98.6, pulse 75, blood pressure 106/60. GENERAL APPEARANCE: No acute distress. Seems to have normal weight. HEAD AND NECK: [place] conjunctivae. HEART: Normal rate. LUNGS: Clear. ABDOMEN: Soft, nontender. EXTREMITIES: He has no edema. LABORATORY AND DIAGNOSTIC DATA: WBC 2.9, hemoglobin 13.2, hematocrit 39.3, and platelet is 148,000. Sodium 142, potassium 3.8, chloride 108, bicarbonate 27, AST 82, ALT 118. Glucose is 139. HIV test was negative. Urine culture, no growth. Chest x-ray was also negative. IMPRESSION: Leukopenia. The patient has pyuria. So far, urine culture is negative. He has no symptoms indicating urinary infection. He has elevated transaminase. He has substance abuse that is cocaine. RECOMMENDATION: Observe off antibiotic. We will follow up urine culture. Troponin are so far negative. At the end of my exam, I thank Dr. Gr for involving me in the care of this patient. Chente Canchola M.D. DR: Sue JOB#: [id number] CC: BEL
--- NOTE | 2018-10-27 17:20 | NUR ---
Social Service Note SW met with patient to assess for homelessness. Patient is alert, oriented and verbally responsive. Patient states he has been homeless for about year. Patient states he was kicked out his apartment and didn't want to elaborate. Patient contributes his homelessness due to the lack of income. Patient receives SSI. Prior to admission patient states he was sleeping on the stairs of a [employer]. Patient declined to state which pent[employer]ism or the area in which he frequents. Patient states has no longer utilizes homeless shelters because patient states their is no point. Patient states you need to line up by 4pm and then are put out by 5/6am. Patient states he would occasionally stay in a hotel. Patient states he doesn't bother his sister Puja of his issues [phone]. SW addressed positive drug screen for cocaine. Patient became slightly agitated discussing his drug use. Patient verbalized that uses 2 to 3 times a week is a big deal. Patient stated he has been doing this forever and he is 72 now. Patient is not interested in substance abuse treatment. Patient states he doesn't have a PMD. Patient states is unable to see and had trouble walking. SYEDA will inform MD and recommend PT eval. SW informed Dr. Talley. Patient not receptive to board and care or transitional housing if facility will take all his money. Patient states he has spent all his money this month. Depending on the level of care required on discharge Rec[facility] vs SNF vs transitional housing. Will monitor and follow up.
--- NOTE | 2018-10-27 17:34 | NUR ---
CASE MANAGEMENT:REVIEW 72 YR OLD MALE BIBA FROM STREET CC: CHEST PAIN SI: ACS. LEUKOPENIA. COCAINE ABUSE 98.5 86 20 138/76 98% ON RA WBC-2.9 URINE(+) COCAINE IS:ASA PO IV ROCEPHIN CXR : TO TELEMETRY
--- NOTE | 2018-10-27 17:44 | NUR ---
INTERQUAL CRITERIA MET FOR OBSERVATION ONLY
[2018-10-27 18:35] LABS: FERRITIN 51 NG/ML (8-388); LACTATE DEHYDROGENASE 106 U/L (81-234)
--- NOTE | 2018-10-27 19:19 | NUR ---
HAND-OFF: Report given to JOHN Gardner. Patient is in stable condition. No acute distress/SOB noted. Endorsed plan of care
--- NOTE | 2018-10-27 19:30 | NUR ---
NURSE NOTES: Received report from Grisel Marsh RN. Pt is sleeping w/o distress in 2L NC, easily arousable by voice stimuli. Safety measures are applied w/ bed alarm on, bed in lowest position w/ side rails up x2. Call light and side table are w/in reach. IV is asymptomatic and patent. Will follow plans of care.
[2018-10-27 20:00] VITALS: BP 109/63
--- NOTE | 2018-10-27 20:21 | Cardiology Progress Note ---
Assessment/Plan Assessment/Plan The patient is seen and examined, full consult note will be dictated shortly. Objective Last 24 Hour Vital Signs Date Time Temp Pulse Resp B/P (MAP) Pulse Ox O2 Delivery O2 Flow Rate FiO2 10/27/18 19:01 73 10/27/18 16:00 98.6 71 20 113/55 (74) 99 10/27/18 16:00 72 10/27/18 12:00 98.6 75 20 106/60 (75) 99 10/27/18 12:00 68 10/27/18 10:08 70 18 Room Air 21 10/27/18 09:00 Nasal Cannula 2.0 10/27/18 08:00 98.4 73 21 100/57 (71) 96 10/27/18 07:35 70 10/27/18 04:00 97.0 83 20 118/73 (88) 94 10/27/18 03:21 69 10/27/18 00:00 98.0 78 20 132/74 (93) 96 10/26/18 23:25 82 10/26/18 21:00 Nasal Cannula 2.0 10/26/18 20:53 Nasal Cannula 2.0 Intake and Output 10/26/18 10/27/18 19:00 07:00 Output Total 0 ml Balance 0 ml Output Urine Total 0 ml Laboratory Tests Test 10/27/18 08:40 10/27/18 17:30 White Blood Count 2.9 K/UL (4.8-10.8) L Red Blood Count 3.96 M/UL (4.70-6.10) L Hemoglobin 13.2 G/DL (14.2-18.0) L Hematocrit 39.3 % (42.0-52.0) L Mean Corpuscular Volume 99 FL (80-99) Mean Corpuscular Hemoglobin 33.2 PG (27.0-31.0) H Mean Corpuscular Hemoglobin Concent 33.5 G/DL (32.0-36.0) Red Cell Distribution Width 11.1 % (11.6-14.8) L Platelet Count 148 K/UL (150-450) L Mean Platelet Volume 7.2 FL (6.5-10.1) Neutrophils (%) (Auto) % (45.0-75.0) Lymphocytes (%) (Auto) % (20.0-45.0) Monocytes (%) (Auto) % (1.0-10.0) Eosinophils (%) (Auto) % (0.0-3.0) Basophils (%) (Auto) % (0.0-2.0) Differential Total Cells Counted 100 Neutrophils % (Manual) 58 % (45-75) Lymphocytes % (Manual) 35 % (20-45) Monocytes % (Manual) 7 % (1-10) Eosinophils % (Manual) 0 % (0-3) Basophils % (Manual) 0 % (0-2) Band Neutrophils 0 % (0-8) Platelet Estimate Decreased L Platelet Morphology Normal Macrocytosis 1+ Reticulocyte Count 0.3 % (0.0-2.0) Sodium Level 142 MMOL/L (136-145) Potassium Level 3.8 MMOL/L (3.5-5.1) Chloride Level 108 MMOL/L (98-107) H Carbon Dioxide Level 27 MMOL/L (21-32) Anion Gap 7 mmol/L (5-15) Blood Urea Nitrogen 17 mg/dL (7-18) Creatinine 1.2 MG/DL (0.55-1.30) Estimat Glomerular Filtration Rate mL/min (>60) Glucose Level 139 MG/DL (74-106) H Calcium Level 8.9 MG/DL (8.5-10.1) Troponin I 0.021 ng/mL (0.000-0.056) Sickle Cell Screen Pending Iron Level Pending Unsaturated Iron Binding Pending Ferritin 51 NG/ML (8-388) Lactate Dehydrogenase 106 U/L (81-234) Thyroid Stimulating Hormone (TSH) 0.342 uiU/mL (0.358-3.740) Microbiology Date/Time Source Procedure Growth Status 10/26/18 18:45 Urine,Clean Catch Urine Culture - Preliminary NO GROWTH Resulted 10/27/18 05:00 Rectum Received Real Fong MD Oct 27, 2018 20:21
--- NOTE | 2018-10-27 21:32 | Consultation ---
History of Present Illness General Chief Complaint: Chest Pain Present Illness HPI 72-year-old male with hx of mmp admitted last night complaining of chest pain after snorting cocaine. the pt is agitated and is not able to follow directions. the pt has cognitive impairment Allergies: Coded Allergies: No Known Allergies (Unverified , 10/26/18) Patient History Limited by: medical condition History Provided By: Medical Record, PMD Healthcare decision maker Resuscitation status Full Code Advanced Directive on File No Past Medical/Surgical History Past Medical/Surgical History: (1) Leukopenia (2) Acute coronary syndrome (3) Cocaine abuse (4) Chest pain (5) multiple joint ost Review of Systems Psychiatric: Reports: anxiety, depressed feelings, emotional problems Physical Exam General Appearance: confused, moderate distress, agitated Last 24 Hour Vital Signs Date Time Temp Pulse Resp B/P (MAP) Pulse Ox O2 Delivery O2 Flow Rate FiO2 10/27/18 20:32 65 18 Room Air 21 10/27/18 19:01 73 10/27/18 16:00 98.6 71 20 113/55 (74) 99 10/27/18 16:00 72 10/27/18 12:00 98.6 75 20 106/60 (75) 99 10/27/18 12:00 68 10/27/18 10:08 70 18 Room Air 21 10/27/18 09:00 Nasal Cannula 2.0 10/27/18 08:00 98.4 73 21 100/57 (71) 96 10/27/18 07:35 70 10/27/18 04:00 97.0 83 20 118/73 (88) 94 10/27/18 03:21 69 10/27/18 00:00 98.0 78 20 132/74 (93) 96 10/26/18 23:25 82 Intake and Output 10/26/18 10/27/18 19:00 07:00 Output Total 0 ml Balance 0 ml Output Urine Total 0 ml Laboratory Tests Test 10/27/18 08:40 10/27/18 17:30 White Blood Count 2.9 K/UL (4.8-10.8) L Red Blood Count 3.96 M/UL (4.70-6.10) L Hemoglobin 13.2 G/DL (14.2-18.0) L Hematocrit 39.3 % (42.0-52.0) L Mean Corpuscular Volume 99 FL (80-99) Mean Corpuscular Hemoglobin 33.2 PG (27.0-31.0) H Mean Corpuscular Hemoglobin Concent 33.5 G/DL (32.0-36.0) Red Cell Distribution Width 11.1 % (11.6-14.8) L Platelet Count 148 K/UL (150-450) L Mean Platelet Volume 7.2 FL (6.5-10.1) Neutrophils (%) (Auto) % (45.0-75.0) Lymphocytes (%) (Auto) % (20.0-45.0) Monocytes (%) (Auto) % (1.0-10.0) Eosinophils (%) (Auto) % (0.0-3.0) Basophils (%) (Auto) % (0.0-2.0) Differential Total Cells Counted 100 Neutrophils % (Manual) 58 % (45-75) Lymphocytes % (Manual) 35 % (20-45) Monocytes % (Manual) 7 % (1-10) Eosinophils % (Manual) 0 % (0-3) Basophils % (Manual) 0 % (0-2) Band Neutrophils 0 % (0-8) Platelet Estimate Decreased L Platelet Morphology Normal Macrocytosis 1+ Reticulocyte Count 0.3 % (0.0-2.0) Sodium Level 142 MMOL/L (136-145) Potassium Level 3.8 MMOL/L (3.5-5.1) Chloride Level 108 MMOL/L (98-107) H Carbon Dioxide Level 27 MMOL/L (21-32) Anion Gap 7 mmol/L (5-15) Blood Urea Nitrogen 17 mg/dL (7-18) Creatinine 1.2 MG/DL (0.55-1.30) Estimat Glomerular Filtration Rate mL/min (>60) Glucose Level 139 MG/DL (74-106) H Calcium Level 8.9 MG/DL (8.5-10.1) Troponin I 0.021 ng/mL (0.000-0.056) Sickle Cell Screen Pending Iron Level Pending Unsaturated Iron Binding Pending Ferritin 51 NG/ML (8-388) Lactate Dehydrogenase 106 U/L (81-234) Thyroid Stimulating Hormone (TSH) 0.342 uiU/mL (0.358-3.740) Microbiology Date/Time Source Procedure Growth Status 10/27/18 05:00 Rectum Received Height (Feet): 5 Height (Inches): 8.00 Weight (Pounds): 145 Medications Current Medications Medications (Trade) Dose Ordered Sig/Jona Route PRN Reason Start Time Stop Time Status Last Admin Dose Admin Acetaminophen (Tylenol) 650 mg Q4H PRN ORAL Mild Pain (Pain Scale 1-3) 10/26/18 22:15 11/25/18 22:14 Acetaminophen (Tylenol) 650 mg Q4H PRN ORAL fever 10/26/18 22:15 11/25/18 22:14 Al Hydroxide/Mg Hydroxide (Mylanta) 30 ml EVERY 4 HOURS PRN ORAL Abdominal cramps 10/26/18 23:15 11/25/18 23:14 Albuterol/ Ipratropium (Albuterol/ Ipratropium) 3 ml EVERY 4 HOURS PRN HHN Shortness of Breath 10/26/18 22:15 10/31/18 22:14 Dextrose (Dextrose 50%) 25 ml Q30M PRN IV Hypoglycemia 10/26/18 22:15 11/25/18 22:14 Dextrose (Dextrose 50%) 50 ml Q30M PRN IV Hypoglycemia 10/26/18 22:15 11/25/18 22:14 Isosorbide Dinitrate (Isordil) 10 mg EVERY 8 HOURS ORAL 10/27/18 22:00 11/26/18 21:59 Nitroglycerin (Ntg) 0.4 mg Q5M PRN SL Prn Chest Pain 10/26/18 22:15 11/25/18 22:14 Pantoprazole (Protonix) 40 mg ACBREAKFAST ORAL 10/27/18 06:30 11/26/18 06:29 10/27/18 06:01 Assessment/Plan Problem List: (1) Cocaine abuse ICD Codes: F14.10 - Cocaine abuse, uncomplicated SNOMED: 90264417 (2) encephalopathy due to toxin Status: not improved Assessment/Plan Seroquel prn restraints as needed provided wiliam/Kourtney Felton MD Oct 27, 2018 21:32
[2018-10-27] MEDS ORDERED: Haloperidol 5mg/ml Inj IM PRN (21:45)
[2018-10-28] VITALS (7 sets, daily range): BP systolic 92–121; BP diastolic 53–70
--- NOTE | 2018-10-28 05:18 | NUR ---
NURSE NOTES: Pt was moved to Rm 220-2. WBC 2.9, possible reverse isolation was informed to CN. Addendum: 10/28/18 at 0653 by JESUS W[address]SON RN Dr. Johns visited pt and assessed pt. Pt is not in reverse isolation. WCB < 2.5 will be reverse isolation per Dr. Johns. SN made aware.
--- NOTE | 2018-10-28 05:45 | History and Physical Report ---
DATE OF ADMISSION: 10/26/2018 HISTORY OF PRESENT ILLNESS: The patient has history of cocaine use and presented due to chest pain for the last 2 days. First troponin was negative. The patient was admitted with chest pain. Denies fevers or shortness of breath. The patient ALLERGIES: None. MEDICATIONS: SOCIAL HISTORY: No smoking. History of drug abuse. Denies alcohol abuse. REVIEW OF SYSTEMS: HEENT: Denies headaches. RESPIRATORY: No shortness of breath. No cough. CARDIOVASCULAR: Chest pain for 2 days. GASTROINTESTINAL: No nausea or vomiting. CENTRAL NERVOUS SYSTEM: Normal speech pattern. PHYSICAL EXAMINATION: VITAL SIGNS: Temperature is 98.6, blood pressure 106/60. HEENT: PERRLA. NECK: Supple. No lymphadenopathy. CHEST: Clear to auscultation. CARDIOVASCULAR: Regular rate and rhythm. ABDOMEN: no organomegaly. EXTREMITIES: No edema. NEUROLOGIC: Sensory intact to light touch. Reflexes are on both sides. Moves all four extremities. LABORATORY DATA: Troponin is negative. White count 2.9. Platelet count 170, 000. Sodium 143, potassium 3.9. ASSESSMENT AND PLAN: 1. Chest pain. 2. Urinary tract infection. 3. History of drug abuse. I have asked Dr. Lester and Dr. Canchola to consult. Azucena Gr M.D. DR: Lucia JOB#: [id number] CC: BEL
[2018-10-28 07:00] LABS: % IRON SATURATION 21 % (15-50); IRON 54 ug/dL (50-175); TOTAL IRON BINDING CAPACITY 264 ug/dL (250-450)
--- NOTE | 2018-10-28 07:24 | NUR ---
HAND-OFF: Report given to Grisel Marsh RN. NPO was kept. Stable condition.
--- NOTE | 2018-10-28 07:25 | NUR ---
NURSE NOTES: Received report from JOHN Gardner. Patient is in stable condition. No acute distress/SOB noted. Will continue plan of care.
--- NOTE | 2018-10-28 09:20 | General Progress Note ---
Assessment/Plan Assessment/Plan (1) Cocaine Abuse (2) Multiple Joint pain (3) Multiple Joint OA Pt will be continued on Tylenol D/w Dr. Enamorado and he concurred Subjective Date patient seen: Oct 28, 2018 Time patient seen: 07:00 - am Constitutional: Reports: weakness HEENT: Reports: no symptoms Cardiovascular: Reports: no symptoms Respiratory: Reports: shortness of breath Gastrointestinal/Abdominal: Reports: no symptoms Genitourinary: Reports: no symptoms Neurologic/Psychiatric: Reports: weakness Endocrine: Reports: no symptoms Hematologic/Lymphatic: Reports: no symptoms Allergies: Coded Allergies: No Known Allergies (Unverified , 10/26/18) Subjective Patient is in bed showing no signs of pain or distress. Has no c/o pain at this time. Objective Last 24 Hour Vital Signs Date Time Temp Pulse Resp B/P (MAP) Pulse Ox O2 Delivery O2 Flow Rate FiO2 10/28/18 08:00 98.1 66 20 102/66 (78) 96 10/28/18 06:44 102/66 10/28/18 06:42 98.8 66 18 102/66 (78) 96 10/28/18 04:00 98.8 63 18 92/53 (66) 96 10/28/18 03:36 59 10/28/18 00:00 98.4 74 18 112/59 (76) 99 10/27/18 23:14 63 10/27/18 21:59 109/63 10/27/18 21:00 Nasal Cannula 2.0 10/27/18 20:32 65 18 Room Air 21 10/27/18 20:00 98.6 70 18 109/63 (78) 99 10/27/18 19:01 73 10/27/18 16:00 98.6 71 20 113/55 (74) 99 10/27/18 16:00 72 10/27/18 12:00 98.6 75 20 106/60 (75) 99 10/27/18 12:00 68 10/27/18 10:08 70 18 Room Air 21 Intake and Output 10/27/18 10/28/18 18:59 06:59 Intake Total 700 ml Output Total 500 ml 600 ml Balance 200 ml -600 ml Intake Oral 700 ml Output Urine Total 500 ml 600 ml # Voids 2 Laboratory Tests 10/27/18 17:30: Sickle Cell Screen [Pending], Iron Level 54, Total Iron Binding Capacity 264, Percent Iron Saturation 21, Unsaturated Iron Binding 210, Ferritin 51, Lactate Dehydrogenase 106, Thyroid Stimulating Hormone (TSH) 0.342L 10/28/18 06:44: Troponin I 0.000, Hepatitis A IgM Antibody [Pending], Hepatitis B Surface Antigen [Pending], Hepatitis B Core IgM Antibody [Pending], Hepatitis C Antibody [Pending] Height (Feet): 5 Height (Inches): 8.00 Weight (Pounds): 145 General Appearance: no apparent distress, alert EENT: PERRL/EOMI Neck: non-tender, normal alignment Cardiovascular: normal rate, regular rhythm Respiratory/Chest: respiratory distress, decreased breath sounds Abdomen: non tender, soft Extremities: non-tender Edema: trace edema Neurologic: alert, oriented x 3 Skin: warm/dry Jayden Mistry Oct 28, 2018 09:20
--- NOTE | 2018-10-28 11:03 | NUR ---
REHAB MED PT NOTE CONSULT RECEIVED, GUS COMPLTED, PATIENT WILL BENEFIT FROM SKILLED PT DURING STAY FOR RETURN TO [facility]. RECOMMEND RETURN TO PRIOR LOCATION AT CO. PLAN OF CARE INITIATED. MIRA FERNANDEZ PT DPT Addendum: 10/28/18 at 1104 by MIRA FERNANDEZ PT Amended: Links added.
--- NOTE | 2018-10-28 12:34 | Infectious Diseases Prog Note ---
Assessment/Plan Assessment/Plan A; Leukopenia Pyuria Cocaine abuse Chest pain Elevated transaminase O; Observe off antibiotic Will f/u hepatitis panel Subjective ROS Limited/Unobtainable: Yes Gastrointestinal/Abdominal: Reports: no symptoms Allergies: Coded Allergies: No Known Allergies (Unverified , 10/26/18) Objective Vital Signs Last 24 Hour Vital Signs Date Time Temp Pulse Resp B/P (MAP) Pulse Ox O2 Delivery O2 Flow Rate FiO2 10/28/18 12:00 98.5 61 20 107/69 (82) 97 10/28/18 09:00 Nasal Cannula 2.0 10/28/18 08:15 64 16 Nasal Cannula 2.0 28 10/28/18 08:15 Nasal Cannula 2.0 28 10/28/18 08:15 97 Nasal Cannula 2.0 28 10/28/18 08:00 64 10/28/18 08:00 98.1 66 20 102/66 (78) 96 10/28/18 06:44 102/66 10/28/18 06:42 98.8 66 18 102/66 (78) 96 10/28/18 04:00 98.8 63 18 92/53 (66) 96 10/28/18 03:36 59 10/28/18 00:00 98.4 74 18 112/59 (76) 99 10/27/18 23:14 63 10/27/18 21:59 109/63 10/27/18 21:00 Nasal Cannula 2.0 10/27/18 20:32 65 18 Room Air 21 10/27/18 20:00 98.6 70 18 109/63 (78) 99 10/27/18 19:01 73 10/27/18 16:00 98.6 71 20 113/55 (74) 99 10/27/18 16:00 72 Height (Feet): 5 Height (Inches): 8.00 Weight (Pounds): 145 General Appearance: no acute distress Respiratory/Chest: other - few rhonchi Cardiovascular: normal rate Abdomen: soft, non tender Extremities: no edema Neurologic/Psychiatric: alert, responsive Microbiology Date/Time Source Procedure Growth Status 10/26/18 19:00 Nasal Nares MRSA Culture - Final NO METHICILLIN RESISTANT STAPH AUREUS... Complete 10/26/18 18:45 Urine,Clean Catch Urine Culture - Preliminary Mixed Gram Positive Organism Resulted 10/27/18 05:00 Rectum Received Laboratory Tests Test 10/27/18 17:30 10/28/18 06:44 Sickle Cell Screen Pending Iron Level 54 ug/dL (50-175) Total Iron Binding Capacity 264 ug/dL (250-450) Percent Iron Saturation 21 % (15-50) Unsaturated Iron Binding 210 ug/dL (112-346) Ferritin 51 NG/ML (8-388) Lactate Dehydrogenase 106 U/L (81-234) Thyroid Stimulating Hormone (TSH) 0.342 uiU/mL (0.358-3.740) Troponin I 0.000 ng/mL (0.000-0.056) Hepatitis A IgM Antibody Pending Hepatitis B Surface Antigen Pending Hepatitis B Core IgM Antibody Pending Hepatitis C Antibody Pending Current Medications Medications (Trade) Dose Ordered Sig/Jona Route PRN Reason Start Time Stop Time Status Last Admin Dose Admin Acetaminophen (Tylenol) 650 mg Q4H PRN ORAL Mild Pain (Pain Scale 1-3) 10/26/18 22:15 11/25/18 22:14 Acetaminophen (Tylenol) 650 mg Q4H PRN ORAL fever 10/26/18 22:15 11/25/18 22:14 Al Hydroxide/Mg Hydroxide (Mylanta) 30 ml EVERY 4 HOURS PRN ORAL Abdominal cramps 10/26/18 23:15 11/25/18 23:14 Albuterol/ Ipratropium (Albuterol/ Ipratropium) 3 ml EVERY 4 HOURS PRN HHN Shortness of Breath 10/26/18 22:15 10/31/18 22:14 Dextrose (Dextrose 50%) 25 ml Q30M PRN IV Hypoglycemia 10/26/18 22:15 11/25/18 22:14 Dextrose (Dextrose 50%) 50 ml Q30M PRN IV Hypoglycemia 10/26/18 22:15 11/25/18 22:14 Haloperidol Lactate (Haldol) 5 mg Q6H PRN IM Agitation 10/27/18 21:45 11/26/18 21:44 Isosorbide Dinitrate (Isordil) 10 mg EVERY 8 HOURS ORAL 10/27/18 22:00 11/26/18 21:59 10/28/18 06:44 Nitroglycerin (Ntg) 0.4 mg Q5M PRN SL Prn Chest Pain 10/26/18 22:15 11/25/18 22:14 Pantoprazole (Protonix) 40 mg ACBREAKFAST ORAL 10/27/18 06:30 11/26/18 06:29 10/28/18 06:44 Quetiapine Fumarate (SEROquel) 25 mg EVERY 6 HOURS PRN ORAL For Anxiety 10/27/18 21:45 11/26/18 21:44 10/27/18 22:03 Chente Canchola MD Oct 28, 2018 12:34
--- NOTE | 2018-10-28 12:36 | General Progress Note ---
Assessment/Plan Assessment/Plan Assessment and Recs # Pancytopenia - new-onset, do not have patient's basleine, could be related to drug abuse, v medications, v etoh, v other toxic ingestion or a bone marrow process --> history of cocaine use recently, and recommend cessation --> us of the abdomen has been orderd --> hep and hiv ordered as well (HIVcame back negative) --> retic and ldh ordered to r/o hemolysis --> neupogen to give to maintain anc >1000 --> reverse isolation indicated if low ANC # Anemia of chronic disease --> obtain anemia w/u --> hgb goal >7, transfuse as needed # Chest pain -- r/o Acute coronary syndrome --> cardiology service has been consulted --> asa was given # Cocaine abuse The timing of this note does not necessarily reflect the time of the patient was seen Greatly appreciate consultation! Subjective Constitutional: Denies: no symptoms, chills, diaphoresis, fever, malaise, weakness, other HEENT: Denies: no symptoms, eye pain, blurred vision, tearing, double vision, ear pain, ear discharge, nose pain, nose congestion, throat pain, throat swelling, mouth pain, mouth swelling, other Cardiovascular: Denies: no symptoms, chest pain, edema, irregular heart rate, lightheadedness, palpitations, syncope, other Respiratory: Denies: no symptoms, cough, orthopnea, shortness of breath, SOB with excertion, SOB at rest, sputum, stridor, wheezing, other Genitourinary: Denies: no symptoms, burning, discharge, frequency, flank pain, hematuria, incontinence, pain, urgency, other Neurologic/Psychiatric: Denies: no symptoms, anxiety, depressed, emotional problems, headache, numbness, paresthesia, pre-existing deficit, seizure, tingling, tremors, weakness, other Endocrine: Denies: no symptoms, excessive sweating, flushing, intolerance to cold, intolerance to heat, increased hunger, increased thirst, increased urine, unexplained weight gain, unexplained weight loss, other Allergies: Coded Allergies: No Known Allergies (Unverified , 10/26/18) Subjective 10/28: cbc is pending for today, on reverse isolation, have dw rn Objective Last 24 Hour Vital Signs Date Time Temp Pulse Resp B/P (MAP) Pulse Ox O2 Delivery O2 Flow Rate FiO2 10/28/18 12:00 98.5 61 20 107/69 (82) 97 10/28/18 09:00 Nasal Cannula 2.0 10/28/18 08:15 64 16 Nasal Cannula 2.0 28 10/28/18 08:15 Nasal Cannula 2.0 28 10/28/18 08:15 97 Nasal Cannula 2.0 28 10/28/18 08:00 64 10/28/18 08:00 98.1 66 20 102/66 (78) 96 10/28/18 06:44 102/66 10/28/18 06:42 98.8 66 18 102/66 (78) 96 10/28/18 04:00 98.8 63 18 92/53 (66) 96 10/28/18 03:36 59 10/28/18 00:00 98.4 74 18 112/59 (76) 99 10/27/18 23:14 63 10/27/18 21:59 109/63 10/27/18 21:00 Nasal Cannula 2.0 10/27/18 20:32 65 18 Room Air 21 10/27/18 20:00 98.6 70 18 109/63 (78) 99 10/27/18 19:01 73 10/27/18 16:00 98.6 71 20 113/55 (74) 99 10/27/18 16:00 72 Intake and Output 10/27/18 10/28/18 18:59 06:59 Intake Total 700 ml Output Total 500 ml 600 ml Balance 200 ml -600 ml Intake Oral 700 ml Output Urine Total 500 ml 600 ml # Voids 2 Laboratory Tests 10/27/18 17:30: Sickle Cell Screen [Pending], Iron Level 54, Total Iron Binding Capacity 264, Percent Iron Saturation 21, Unsaturated Iron Binding 210, Ferritin 51, Lactate Dehydrogenase 106, Thyroid Stimulating Hormone (TSH) 0.342L 10/28/18 06:44: Troponin I 0.000, Hepatitis A IgM Antibody [Pending], Hepatitis B Surface Antigen [Pending], Hepatitis B Core IgM Antibody [Pending], Hepatitis C Antibody [Pending] Height (Feet): 5 Height (Inches): 8.00 Weight (Pounds): 145 General Appearance: no apparent distress Neck: normal alignment Cardiovascular: regular rhythm Respiratory/Chest: normal breath sounds Extremities: non-tender Edema: 1+ Leg (L), 1+ Leg (R) Neurologic: alert Skin: warm/dry Iván Gonzalez MD Oct 28, 2018 12:36
--- NOTE | 2018-10-28 14:07 | Diagnostic Imaging Report ---
Indication:Abdominal pain Technique: Grayscale and duplex Doppler imaging of the abdomen performed. Comparison: None Findings: The liver is unremarkable. The gallbladder is unremarkable. The demonstrated part of the pancreas, aorta and IVC show no abnormalities. Aorta is moderately calcified. Both kidneys appear unremarkable. The spleen is normal in size. There is no biliary ductal dilatation identified. Doppler evaluation of the main portal vein shows patency. CBD 4 mm. There is no ascites. No hydronephrosis seen. Impression: No acute findings. Atherosclerotic disease
--- NOTE | 2018-10-28 19:22 | NUR ---
HAND-OFF: Report given to JOHN Zuniga. Patient is in stable condition. Endorsed plan of care.
--- NOTE | 2018-10-28 19:30 | NUR ---
NURSE NOTES: Report received from JOHN Arshad. Pt is lying comfortably in semi-fowlers with no signs of distress. Pt A+Ox4 and denies pain/SOB. Respirations are even and unlabored on room air. IV site is patent, intact, and saline locked. Bed is at lowest position, brakes engaged, siderails x2, bed alarm on, and call light within reach. Pt is in stable condition at this time; will continue to monitor.
--- NOTE | 2018-10-28 20:41 | General Progress Note ---
Assessment/Plan Problem List: (1) Acute coronary syndrome ICD Codes: I24.9 - Acute ischemic heart disease, unspecified SNOMED: 650971114 (2) Chest pain ICD Codes: R07.9 - Chest pain, unspecified SNOMED: 03005299 (3) Cocaine abuse ICD Codes: F14.10 - Cocaine abuse, uncomplicated SNOMED: 34931270 Status: progressing Status Narrative r/p acs atypical cp drug abuse reviewed chart and labs Subjective ROS Limited/Unobtainable: Yes Allergies: Coded Allergies: No Known Allergies (Unverified , 10/26/18) Objective Last 24 Hour Vital Signs Date Time Temp Pulse Resp B/P (MAP) Pulse Ox O2 Delivery O2 Flow Rate FiO2 10/28/18 20:00 97.3 78 18 119/69 (86) 95 10/28/18 16:00 97 10/28/18 16:00 98.3 83 22 121/70 (87) 95 10/28/18 13:35 107/69 10/28/18 12:00 78 10/28/18 12:00 98.5 61 20 107/69 (82) 97 10/28/18 09:00 Nasal Cannula 2.0 10/28/18 08:15 64 16 Nasal Cannula 2.0 28 10/28/18 08:15 Nasal Cannula 2.0 28 10/28/18 08:15 97 Nasal Cannula 2.0 28 10/28/18 08:00 64 10/28/18 08:00 98.1 66 20 102/66 (78) 96 10/28/18 06:44 102/66 10/28/18 06:42 98.8 66 18 102/66 (78) 96 10/28/18 04:00 98.8 63 18 92/53 (66) 96 10/28/18 03:36 59 10/28/18 00:00 98.4 74 18 112/59 (76) 99 10/27/18 23:14 63 10/27/18 21:59 109/63 10/27/18 21:00 Nasal Cannula 2.0 Intake and Output 10/27/18 10/28/18 19:00 07:00 Intake Total 700 ml Output Total 500 ml 600 ml Balance 200 ml -600 ml Intake Oral 700 ml Output Urine Total 500 ml 600 ml # Voids 2 Laboratory Tests 10/28/18 06:44: Troponin I 0.000, Hepatitis A IgM Antibody [Pending], Hepatitis B Surface Antigen [Pending], Hepatitis B Core IgM Antibody [Pending], Hepatitis C Antibody [Pending] Height (Feet): 5 Height (Inches): 8.00 Weight (Pounds): 145 Neck: supple Cardiovascular: normal rate Respiratory/Chest: lungs clear Abdomen: soft Azucena Gr MD Oct 28, 2018 20:41
--- NOTE | 2018-10-28 23:35 | Cardiology Progress Note ---
Assessment/Plan Assessment/Plan 1. Non-cardiac chest pain following cocaine use, AMI is ruled out, no ECG evidence of ischemia, continue ASA and statins. Outpatient stress test if this recurs. Continue nitrates, consider CCB of hypertensive. 2. Psychiatric disorder. 3. Hx of asthma. Subjective Subjective Sinus rhythm at 78. On NC oxygen. Objective Last 24 Hour Vital Signs Date Time Temp Pulse Resp B/P (MAP) Pulse Ox O2 Delivery O2 Flow Rate FiO2 10/28/18 21:55 96 Nasal Cannula 2.0 28 10/28/18 21:55 Nasal Cannula 2.0 28 10/28/18 21:55 78 18 Nasal Cannula 2.0 28 10/28/18 21:05 119/69 10/28/18 21:00 Room Air 10/28/18 20:00 94 10/28/18 20:00 97.3 78 18 119/69 (86) 95 10/28/18 16:00 97 10/28/18 16:00 98.3 83 22 121/70 (87) 95 10/28/18 13:35 107/69 10/28/18 12:00 78 10/28/18 12:00 98.5 61 20 107/69 (82) 97 10/28/18 09:00 Nasal Cannula 2.0 10/28/18 08:15 64 16 Nasal Cannula 2.0 28 10/28/18 08:15 Nasal Cannula 2.0 28 10/28/18 08:15 97 Nasal Cannula 2.0 28 10/28/18 08:00 64 10/28/18 08:00 98.1 66 20 102/66 (78) 96 10/28/18 06:44 102/66 10/28/18 06:42 98.8 66 18 102/66 (78) 96 10/28/18 04:00 98.8 63 18 92/53 (66) 96 10/28/18 03:36 59 10/28/18 00:00 98.4 74 18 112/59 (76) 99 Intake and Output 10/27/18 10/28/18 19:00 07:00 Intake Total 700 ml Output Total 500 ml 600 ml Balance 200 ml -600 ml Intake Oral 700 ml Output Urine Total 500 ml 600 ml # Voids 2 Laboratory Tests Test 10/28/18 06:44 Troponin I 0.000 ng/mL (0.000-0.056) Hepatitis A IgM Antibody Pending Hepatitis B Surface Antigen Pending Hepatitis B Core IgM Antibody Pending Hepatitis C Antibody Pending Microbiology Date/Time Source Procedure Growth Status 10/26/18 19:00 Nasal Nares MRSA Culture - Final NO METHICILLIN RESISTANT STAPH AUREUS... Complete 10/26/18 18:45 Urine,Clean Catch Urine Culture - Preliminary Mixed Gram Positive Organism Resulted 10/27/18 05:00 Rectum Received Objective HEENT: PERRLA, EOMI, atraumatic, normocephalic. NECK: JVP <5 cm, no carotid bruit. HEART: Normal S1S2, regular rate and rhythm, no murmurs, gallops or rubs. LUNGS: Clear B/L. ABDOMEN: Soft, nontender/non-distended, + BS. EXTREMITIES: no edema, clubbing or cyanosis. Real Fong MD Oct 28, 2018 23:35
--- NOTE | 2018-10-28 23:43 | General Progress Note ---
Assessment/Plan Assessment/Plan (1) Cocaine abuse ICD Codes: F14.10 - Cocaine abuse, uncomplicated SNOMED: 47698276 (2) encephalopathy due to toxin Status: not improved Assessment/Plan Seroquel prn restraints as needed provided ro/st Subjective Neurologic/Psychiatric: Reports: anxiety, depressed, emotional problems Allergies: Coded Allergies: No Known Allergies (Unverified , 10/26/18) Objective Last 24 Hour Vital Signs Date Time Temp Pulse Resp B/P (MAP) Pulse Ox O2 Delivery O2 Flow Rate FiO2 10/28/18 21:55 96 Nasal Cannula 2.0 28 10/28/18 21:55 Nasal Cannula 2.0 28 10/28/18 21:55 78 18 Nasal Cannula 2.0 28 10/28/18 21:05 119/69 10/28/18 21:00 Room Air 10/28/18 20:00 94 10/28/18 20:00 97.3 78 18 119/69 (86) 95 10/28/18 16:00 97 10/28/18 16:00 98.3 83 22 121/70 (87) 95 10/28/18 13:35 107/69 10/28/18 12:00 78 10/28/18 12:00 98.5 61 20 107/69 (82) 97 10/28/18 09:00 Nasal Cannula 2.0 10/28/18 08:15 64 16 Nasal Cannula 2.0 28 10/28/18 08:15 Nasal Cannula 2.0 28 10/28/18 08:15 97 Nasal Cannula 2.0 28 10/28/18 08:00 64 10/28/18 08:00 98.1 66 20 102/66 (78) 96 10/28/18 06:44 102/66 10/28/18 06:42 98.8 66 18 102/66 (78) 96 10/28/18 04:00 98.8 63 18 92/53 (66) 96 10/28/18 03:36 59 10/28/18 00:00 98.4 74 18 112/59 (76) 99 Intake and Output 10/27/18 10/28/18 19:00 07:00 Intake Total 700 ml Output Total 500 ml 600 ml Balance 200 ml -600 ml Intake Oral 700 ml Output Urine Total 500 ml 600 ml # Voids 2 Laboratory Tests 10/28/18 06:44: Troponin I 0.000, Hepatitis A IgM Antibody [Pending], Hepatitis B Surface Antigen [Pending], Hepatitis B Core IgM Antibody [Pending], Hepatitis C Antibody [Pending] Height (Feet): 5 Height (Inches): 8.00 Weight (Pounds): 145 General Appearance: alert, agitated Kourtney Lester MD Oct 28, 2018 23:43
[2018-10-29] VITALS: BP 103/61
--- NOTE | 2018-10-29 00:15 | NUR ---
NURSE NOTES: Received pt. and report from JOHN Zuniga. Observe pt. asleep in bed. residential monitor is in placed, IV site is intact, asymptomatic, and patent. Bed is in the lowest position and locked, call light within reach. No acute distress noted at this time. Will continue plan of care.
--- NOTE | 2018-10-29 00:20 | NUR ---
HAND-OFF: Report given to JOHN Perez. Pt is in stable condition at this time; plan of care endorsed.
--- NOTE | 2018-10-29 00:30 | Consultation ---
DATE OF CONSULTATION: 10/27/2018 CARDIOLOGY CONSULTATION: CONSULTING PHYSICIAN: Real Fong M.D. REFERRING PHYSICIAN: Azucena Gr M.D. REASON FOR CONSULTATION: Management of chest pain. HISTORY OF PRESENT ILLNESS: The patient is a very unfortunate 72-year-old gentleman, with a history of psychiatric disorder who presents to the hospital with complaints of chest pain, had been going on for 2 days following snorting cocaine. The patient states that the chest pain is sharp and localized to the substernal area with no radiation. No provoking with no relief. He had associated shortness of breath, but no nausea, vomiting, or diaphoresis. This chest pain has been repeatedly felt during the past 2 days. The patient's risk factors for coronary artery disease is only age. He denies any diabetes mellitus, hypertension, or hyperlipidemia. There is no history of premature coronary artery disease in the first-degree relatives. PAST MEDICAL HISTORY: 1. Psychiatric disorder. 2. Asthma. PAST SURGICAL HISTORY: None. FAMILY HISTORY: No premature coronary artery disease or CHF in the first-degree relatives. LIST OF MEDICATIONS: The patient does not take any medication. REVIEW OF SYSTEMS: HEENT: Denies any headache, diplopia, or blurred vision. CONSTITUTIONAL: Denies any fever, chills, nausea, or weight loss. CARDIOVASCULAR: Complains of chest pain as mentioned above as well as shortness of breath, but no PND, orthopnea, leg swelling, or syncope. PULMONARY: Denies any cough, hemoptysis, or wheezing. GASTROINTESTINAL: Denies any nausea, vomiting, diarrhea, constipation, abdominal pain, or GI bleed. GENITOURINARY: Denies any hematuria, dysuria, or incontinence. NEUROLOGIC: Denies any motor dysfunction, sensory deficit, or altered speech. ALLERGIES: No known drug allergies. SOCIAL HISTORY: Denies any alcohol or tobacco. Positive for cocaine use. PHYSICAL EXAMINATION: VITAL SIGNS: Blood pressure is 138/76, respirations 20, pulse of 86, temperature 98.4 degrees Fahrenheit, and O2 saturation 99% on room air. GENERAL: The patient is a very unfortunate 72-year-old gentleman, in no apparent respiratory distress. Alert and oriented x4. HEENT: Atraumatic and normocephalic. Anicteric. Pupils are equal, round, and reactive to light and accommodation. Extraocular muscles intact. NECK: JVP less than 5 cm. No carotid bruit. Carotid upstroke is 2+ bilaterally. CARDIOVASCULAR: Normal S1, S2. Regular rate and rhythm. No murmurs, gallops, or rubs. PMI is at fourth intercostal space in the midclavicular line. LUNGS: Clear to auscultation bilaterally. ABDOMEN: Soft, nontender, and nondistended. No hepatosplenomegaly. Positive bowel sounds. EXTREMITIES: No evidence of edema, clubbing, or cyanosis. LABORATORY FINDINGS: WBC 2.9, hemoglobin 15.5, hematocrit of 46.1, and platelet count is 170. Sodium was 143, potassium is 3.9, chloride 105, bicarbonate 31, BUN 13, creatinine 1.2, glucose 71, and calcium 9.6. ProBNP was 14. Troponin I was 0.002 and 0.021. A 12-lead electrocardiogram shows sinus rhythm, heart rate of [address] and T-wave abnormalities. Chest x-ray showed no acute cardiopulmonary disease. ASSESSMENT AND PLAN: The patient is a very unfortunate 72-year-old gentleman, seen in Cardiology consultation at request of Dr. Gr. 1. Most likely noncardiac chest pain. Chest pain occurred after use of cocaine. The patient's blood pressure at the time of arrival to the hospital was 130/76. A 12-lead electrocardiogram did not show any evidence of ischemia. Acute myocardial infarction is ruled out. The patient may benefit from nitrates and if blood pressure is not controlled, addition of calcium channel bob. There is no known CAD risk factors. We will continue with the conservative management and the patient will benefit from an outpatient stress test if this repairs. The patient also require social work instructor for cocaine abstinence. 2. History of asthma. 3. History of psychiatric disorder. I would like to thank, Dr. Gr, for allowing me to participate in the care of this patient. Real Fong M.D. DR: MOOKIE JOB#: [id number] CC:
[2018-10-29 04:00] VITALS: BP 126/65
--- NOTE | 2018-10-29 07:05 | NUR ---
HAND-OFF: Report given to JOHN Hooks. Pt. is in stable condition. Plan of care endorsed.
--- NOTE | 2018-10-29 07:16 | NUR ---
NURSE NOTES: Received bedside report from Ana RN. Pt. up sitting at the edge of the bed having breakfast. No sign of distress. Denies pain at present. IV site at [facility] #[id number]. in placed SL. Bed in low position, locked. Call light within reach. Will cont. to monitor.
[2018-10-29 08:00] VITALS: BP 103/68
--- NOTE | 2018-10-29 09:47 | General Progress Note ---
Assessment/Plan Problem List: (1) Chest pain ICD Codes: R07.9 - Chest pain, unspecified SNOMED: 86355280 (2) Cocaine abuse ICD Codes: F14.10 - Cocaine abuse, uncomplicated SNOMED: 54648681 (3) multiple joint ost Status: doing well, stable Subjective Constitutional: Denies: no symptoms, chills, diaphoresis, fever, malaise, weakness, other HEENT: Denies: no symptoms, eye pain, blurred vision, tearing, double vision, ear pain, ear discharge, nose pain, nose congestion, throat pain, throat swelling, mouth pain, mouth swelling, other Cardiovascular: Reports: chest pain, edema, other Respiratory: Denies: no symptoms, cough, orthopnea, shortness of breath, SOB with excertion, SOB at rest, sputum, stridor, wheezing, other Gastrointestinal/Abdominal: Denies: no symptoms, abdomen distended, abdominal pain, black stools, tarry stools, blood in stool, constipated, diarrhea, difficulty swallowing, nausea, poor appetite, poor fluid intake, rectal bleeding , vomiting, other Genitourinary: Denies: no symptoms, burning, discharge, frequency, flank pain, hematuria, incontinence, pain, urgency, other Neurologic/Psychiatric: Denies: no symptoms, anxiety, depressed, emotional problems, headache, numbness, paresthesia, pre-existing deficit, seizure, tingling, tremors, weakness, other Allergies: Coded Allergies: No Known Allergies (Unverified , 10/26/18) Subjective Pt requests Dilaudid 2 mg IV every 4 hours and wants Benadryl also. I d/w pt regarding her liver condition and load of medicine. I agreed to give her 2 mg Dilaudid every 4 hours but IVPB. But when I explained to herwhat is IVPB, she refused and wants to stay on current dose. Objective Last 24 Hour Vital Signs Date Time Temp Pulse Resp B/P (MAP) Pulse Ox O2 Delivery O2 Flow Rate FiO2 10/29/18 08:00 98.3 68 20 103/68 (80) 97 10/29/18 05:32 126/65 10/29/18 04:00 61 10/29/18 04:00 97.0 68 16 126/65 (85) 98 10/29/18 00:00 77 10/29/18 00:00 98.1 74 16 103/61 (75) 98 10/28/18 21:55 96 Nasal Cannula 2.0 28 10/28/18 21:55 Nasal Cannula 2.0 28 10/28/18 21:55 78 18 Nasal Cannula 2.0 28 10/28/18 21:05 119/69 10/28/18 21:00 Room Air 10/28/18 20:00 94 10/28/18 20:00 97.3 78 18 119/69 (86) 95 10/28/18 16:00 97 10/28/18 16:00 98.3 83 22 121/70 (87) 95 10/28/18 13:35 107/69 10/28/18 12:00 78 10/28/18 12:00 98.5 61 20 107/69 (82) 97 Intake and Output 10/28/18 10/29/18 18:59 06:59 Intake Total 250 ml Output Total 1100 ml 350 ml Balance -1100 ml -100 ml Intake Oral 250 ml Output Urine Total 1100 ml 350 ml # Voids 1 Laboratory Tests 10/29/18 07:05: Troponin I 0.011 Height (Feet): 5 Height (Inches): 8.00 Weight (Pounds): 145 General Appearance: alert EENT: PERRL/EOMI Neck: non-tender, supple Cardiovascular: normal rate Respiratory/Chest: lungs clear Abdomen: soft Extremities: non-tender Edema: no edema noted Arm (L), no edema noted Arm (R), no edema noted Leg (L), no edema noted Leg (R), no edema noted Pedal (L), no edema noted Pedal (R), no edema noted Generalized Neurologic: rn immunology II-XII grossly normal, no motor/sensory deficits, oriented x 3 Mook Enamorado MD Oct 29, 2018 09:47
--- NOTE | 2018-10-29 10:21 | Infectious Diseases Prog Note ---
Assessment/Plan Assessment/Plan A; Leukopenia Pyuria Cocaine abuse Chest pain Elevated transaminase Hepatitis C O; Observe off antibiotic Subjective ROS Limited/Unobtainable: Yes Allergies: Coded Allergies: No Known Allergies (Unverified , 10/26/18) Objective Vital Signs Last 24 Hour Vital Signs Date Time Temp Pulse Resp B/P (MAP) Pulse Ox O2 Delivery O2 Flow Rate FiO2 10/29/18 09:00 Room Air 10/29/18 08:00 98.3 68 20 103/68 (80) 97 10/29/18 07:49 66 10/29/18 05:32 126/65 10/29/18 04:00 61 10/29/18 04:00 97.0 68 16 126/65 (85) 98 10/29/18 00:00 77 10/29/18 00:00 98.1 74 16 103/61 (75) 98 10/28/18 21:55 96 Nasal Cannula 2.0 28 10/28/18 21:55 Nasal Cannula 2.0 28 10/28/18 21:55 78 18 Nasal Cannula 2.0 28 10/28/18 21:05 119/69 10/28/18 21:00 Room Air 10/28/18 20:00 94 10/28/18 20:00 97.3 78 18 119/69 (86) 95 10/28/18 16:00 97 10/28/18 16:00 98.3 83 22 121/70 (87) 95 10/28/18 13:35 107/69 10/28/18 12:00 78 10/28/18 12:00 98.5 61 20 107/69 (82) 97 Height (Feet): 5 Height (Inches): 8.00 Weight (Pounds): 145 General Appearance: no acute distress HEENT: mucous membranes moist Respiratory/Chest: lungs clear Cardiovascular: normal rate Abdomen: soft, non tender Extremities: no edema Neurologic/Psychiatric: other - sleeping Microbiology Date/Time Source Procedure Growth Status 10/26/18 19:00 Nasal Nares MRSA Culture - Final NO METHICILLIN RESISTANT STAPH AUREUS... Complete 10/26/18 18:45 Urine,Clean Catch Urine Culture - Final Mixed Gram Positive Organism Complete 10/27/18 05:00 Rectum - Final NO CARBAPENEM-RESISTANT ENTEROBACTERI... Complete 10/27/18 05:00 Rectum VRE Culture - Final NO VANCOMYCIN RESISTANT ENTEROCOCCUS ... Complete Laboratory Tests Test 10/29/18 07:05 Troponin I 0.011 ng/mL (0.000-0.056) Current Medications Medications (Trade) Dose Ordered Sig/Jona Route PRN Reason Start Time Stop Time Status Last Admin Dose Admin Acetaminophen (Tylenol) 650 mg Q4H PRN ORAL Mild Pain (Pain Scale 1-3) 10/26/18 22:15 11/25/18 22:14 Acetaminophen (Tylenol) 650 mg Q4H PRN ORAL fever 10/26/18 22:15 11/25/18 22:14 Al Hydroxide/Mg Hydroxide (Mylanta) 30 ml EVERY 4 HOURS PRN ORAL Abdominal cramps 10/26/18 23:15 11/25/18 23:14 Albuterol/ Ipratropium (Albuterol/ Ipratropium) 3 ml EVERY 4 HOURS PRN HHN Shortness of Breath 10/26/18 22:15 10/31/18 22:14 Dextrose (Dextrose 50%) 25 ml Q30M PRN IV Hypoglycemia 10/26/18 22:15 11/25/18 22:14 Dextrose (Dextrose 50%) 50 ml Q30M PRN IV Hypoglycemia 10/26/18 22:15 11/25/18 22:14 Haloperidol Lactate (Haldol) 5 mg Q6H PRN IM Agitation 10/27/18 21:45 11/26/18 21:44 Isosorbide Dinitrate (Isordil) 10 mg EVERY 8 HOURS ORAL 10/27/18 22:00 11/26/18 21:59 10/29/18 05:32 Nitroglycerin (Ntg) 0.4 mg Q5M PRN SL Prn Chest Pain 10/26/18 22:15 11/25/18 22:14 Pantoprazole (Protonix) 40 mg ACBREAKFAST ORAL 10/27/18 06:30 11/26/18 06:29 10/29/18 05:32 Quetiapine Fumarate (SEROquel) 25 mg EVERY 6 HOURS PRN ORAL For Anxiety 10/27/18 21:45 11/26/18 21:44 10/27/18 22:03 Chente Canchola MD Oct 29, 2018 10:21
[2018-10-29 12:00] VITALS: BP 125/73
--- NOTE | 2018-10-29 13:34 | General Progress Note ---
Assessment/Plan Problem List: (1) Cocaine abuse ICD Codes: F14.10 - Cocaine abuse, uncomplicated SNOMED: 56261899 (2) encephalopathy due to toxin Status: stable, progressing Assessment/Plan (1) Cocaine abuse ICD Codes: F14.10 - Cocaine abuse, uncomplicated SNOMED: 88143456 (2) encephalopathy due to toxin Status: not improved Assessment/Plan Seroquel prn restraints as needed provided ro/st Subjective Neurologic/Psychiatric: Reports: anxiety, depressed, emotional problems Allergies: Coded Allergies: No Known Allergies (Unverified , 10/26/18) Objective Last 24 Hour Vital Signs Date Time Temp Pulse Resp B/P (MAP) Pulse Ox O2 Delivery O2 Flow Rate FiO2 10/29/18 12:00 98.8 69 20 125/73 (90) 100 10/29/18 09:50 Nasal Cannula 2.0 28 10/29/18 09:50 96 Nasal Cannula 2.0 28 10/29/18 09:50 69 18 Nasal Cannula 2.0 28 10/29/18 09:00 Room Air 10/29/18 08:00 98.3 68 20 103/68 (80) 97 10/29/18 07:49 66 10/29/18 05:32 126/65 10/29/18 04:00 61 10/29/18 04:00 97.0 68 16 126/65 (85) 98 10/29/18 00:00 77 10/29/18 00:00 98.1 74 16 103/61 (75) 98 10/28/18 21:55 96 Nasal Cannula 2.0 28 10/28/18 21:55 Nasal Cannula 2.0 28 10/28/18 21:55 78 18 Nasal Cannula 2.0 28 10/28/18 21:05 119/69 10/28/18 21:00 Room Air 10/28/18 20:00 94 10/28/18 20:00 97.3 78 18 119/69 (86) 95 10/28/18 16:00 97 10/28/18 16:00 98.3 83 22 121/70 (87) 95 10/28/18 13:35 107/69 Intake and Output 10/28/18 10/29/18 18:59 06:59 Intake Total 250 ml Output Total 1100 ml 350 ml Balance -1100 ml -100 ml Intake Oral 250 ml Output Urine Total 1100 ml 350 ml # Voids 1 Laboratory Tests 10/29/18 07:05: Troponin I 0.011 Height (Feet): 5 Height (Inches): 8.00 Weight (Pounds): 145 General Appearance: alert, agitated Kourtney Lester MD Oct 29, 2018 13:34
--- NOTE | 2018-10-29 14:47 | Cardiology Report ---
APPROVED REPORT EXAM: Two-dimensional and M-mode echocardiogram with Doppler and color Doppler. INDICATION Chest Pain M-Mode DIMENSIONS IVSd0.8 (0.7-1.1cm)Left Atrium (MM)3.0 (1.6-4.0cm) LVDd3.7 (3.5-5.6cm)Aortic Root3.2 (2.0-3.7cm) PWd1.0 (0.7-1.1cm)Aortic Cusp Exc.2.0 (1.5-2.0cm) LVDs1.8 (2.5-4.0cm) PWs1.6 cm Normal left ventricular chamber size, systolic function and wall motion. Left ventricular ejection fraction estimated to be 60 %. No evidence of left ventricular hypertrophy. No evidence of pericardial effusion. All other cardiac chamber sizes are within normal limits. Mild focal aortic valve sclerosis with adequate cusp excursion. Mildly thickened mitral valve leaflets with normal excursion. Mild mitral annulus and aortic root calcification. Normal pulmonic valve structure. Normal tricuspid valve structure. IVC dilated at 2.6 cm without physiological collapse, suggestive of increased RA pressure. A color flow and spectral Doppler study was performed and revealed: No aortic insufficiency. Mild mitral regurgitation. Mitral inflow velocities indicates possible pseudo normalization pattern implying significant left ventricular diastolic dysfunction (Grade II). Mild tricuspid regurgitation. Tricuspid systolic velocities suggests peak right ventricular systolic pressure of 34 mmHg. Trace pulmonic regurgitation present.
[2018-10-29 16:00] VITALS: BP 164/81
--- NOTE | 2018-10-29 16:41 | NUR ---
*-* INSURANCE *-* CLINICALS HAVE BEEN FAXED TO: [facility] NCM:AVIVA P:[phone] F:[phone]
--- NOTE | 2018-10-29 17:11 | NUR ---
CASE MANAGEMENT:REVIEW 10/29/18 SI: ACS 98.9 42 23 164/81 95% ON 2L/NC TROPONIN(-) X4 IS: ISORDIL PO Q8HR PROTONIX PO QAM : TELEMETRY STATUS PLAN: PT GUS 2DECHO
--- NOTE | 2018-10-29 19:30 | NUR ---
NURSE NOTES: Report received from JOHN Hooks. Observed pt lying on bed, sleeping, arousable by voice. Denies pain at this time. A/O x4. SR with drilling manager. IV on R AC 18G, intact and patent, heplock. Bed in the lowest position. Call light within reach. Side rails up x3. Will continue to monitor.
--- NOTE | 2018-10-29 19:48 | NUR ---
HAND-OFF: Report given to Angelic MEADOWS. Pt. remain stable.
[2018-10-29 20:00] VITALS: BP 163/80
--- NOTE | 2018-10-29 20:10 | General Progress Note ---
Assessment/Plan Assessment/Plan Assessment and Recs # Pancytopenia - HEPATITIS C++ new-onset, do not have patient's basleine, could be related to drug abuse, v medications, v etoh, v other toxic ingestion or a bone marrow process --> history of cocaine use recently, and recommend cessation --> us of the abdomen has been reviewed and is neg for hsm /splenomeg/cirrhosis --> hiv is negative --> neupogen to give to maintain anc >1000 --> reverse isolation indicated if low ANC # Anemia of chronic disease --> ferritin is 51, consider gi w/u if drops --> hgb goal >7, transfuse as needed # Chest pain -- r/o Acute coronary syndrome --> cardiology service has been consulted --> asa was given # Cocaine abuse # Hepatitis C The timing of this note does not necessarily reflect the time of the patient was seen Greatly appreciate consultation! Subjective HEENT: Denies: no symptoms, eye pain, blurred vision, tearing, double vision, ear pain, ear discharge, nose pain, nose congestion, throat pain, throat swelling, mouth pain, mouth swelling, other Cardiovascular: Denies: no symptoms, chest pain, edema, irregular heart rate, lightheadedness, palpitations, syncope, other Respiratory: Denies: no symptoms, cough, orthopnea, shortness of breath, SOB with excertion, SOB at rest, sputum, stridor, wheezing, other Gastrointestinal/Abdominal: Denies: no symptoms, abdomen distended, abdominal pain, black stools, tarry stools, blood in stool, constipated, diarrhea, difficulty swallowing, nausea, poor appetite, poor fluid intake, rectal bleeding , vomiting, other Genitourinary: Denies: no symptoms, burning, discharge, frequency, flank pain, hematuria, incontinence, pain, urgency, other Neurologic/Psychiatric: Denies: no symptoms, anxiety, depressed, emotional problems, headache, numbness, paresthesia, pre-existing deficit, seizure, tingling, tremors, weakness, other Endocrine: Denies: no symptoms, excessive sweating, flushing, intolerance to cold, intolerance to heat, increased hunger, increased thirst, increased urine, unexplained weight gain, unexplained weight loss, other Allergies: Coded Allergies: No Known Allergies (Unverified , 10/26/18) Subjective 10/28: cbc is pending for today, on reverse isolation, have dw rn 10/29: cbc reordered, results pending, 2d echo pending, seen by pain management he is requesting change to dilaudid Objective Last 24 Hour Vital Signs Date Time Temp Pulse Resp B/P (MAP) Pulse Ox O2 Delivery O2 Flow Rate FiO2 10/29/18 16:00 98.9 42 23 164/81 (108) 95 10/29/18 14:00 125/73 10/29/18 12:00 98.8 69 20 125/73 (90) 100 10/29/18 11:57 76 10/29/18 09:50 Nasal Cannula 2.0 28 10/29/18 09:50 96 Nasal Cannula 2.0 28 10/29/18 09:50 69 18 Nasal Cannula 2.0 28 10/29/18 09:00 Room Air 10/29/18 08:00 98.3 68 20 103/68 (80) 97 10/29/18 07:49 66 10/29/18 05:32 126/65 10/29/18 04:00 61 10/29/18 04:00 97.0 68 16 126/65 (85) 98 10/29/18 00:00 77 10/29/18 00:00 98.1 74 16 103/61 (75) 98 10/28/18 21:55 96 Nasal Cannula 2.0 28 10/28/18 21:55 Nasal Cannula 2.0 28 10/28/18 21:55 78 18 Nasal Cannula 2.0 28 10/28/18 21:05 119/69 10/28/18 21:00 Room Air Intake and Output 10/28/18 10/29/18 19:00 07:00 Intake Total 250 ml Output Total 1100 ml 350 ml Balance -1100 ml -100 ml Intake Oral 250 ml Output Urine Total 1100 ml 350 ml # Voids 1 Laboratory Tests 10/29/18 07:05: Troponin I 0.011 Height (Feet): 5 Height (Inches): 8.00 Weight (Pounds): 145 Objective Neck: normal alignment Cardiovascular: regular rhythm Respiratory/Chest: normal breath sounds Extremities: non-tender Edema: 1+ Leg (L), 1+ Leg (R) Neurologic: alert Skin: warm/dry Iván Gonzalez MD Oct 29, 2018 20:10
[2018-10-29 20:21] LABS: HEMATOCRIT 38.9 % (42.0-52.0); MEAN CORPUSCULAR VOLUME 99 FL (80-99); PLATELET COUNT 126 K/UL (150-450); RED BLOOD COUNT 3.94 M/UL (4.70-6.10); RED CELL DISTRIBUTION WIDTH 10.8 % (11.6-14.8); WHITE BLOOD COUNT 3.2 K/UL (4.8-10.8)
[2018-10-29 20:22] LABS: BASOPHILS % (AUTO) 1.4 % (0.0-2.0); EOSINOPHILS % (AUTO) 1.7 % (0.0-3.0); MONOCYTES % (AUTO) 11.3 % (1.0-10.0); NEUTROPHILS % (AUTO) 58.7 % (45.0-75.0)
--- NOTE | 2018-10-29 21:34 | General Progress Note ---
Assessment/Plan Problem List: (1) Acute coronary syndrome ICD Codes: I24.9 - Acute ischemic heart disease, unspecified SNOMED: 646089089 (2) Chest pain ICD Codes: R07.9 - Chest pain, unspecified SNOMED: 34454715 (3) Cocaine abuse ICD Codes: F14.10 - Cocaine abuse, uncomplicated SNOMED: 85722965 Status: progressing Assessment/Plan homeless drug abuse cp r/o acs neg trop Subjective ROS Limited/Unobtainable: Yes Allergies: Coded Allergies: No Known Allergies (Unverified , 10/26/18) Objective Last 24 Hour Vital Signs Date Time Temp Pulse Resp B/P (MAP) Pulse Ox O2 Delivery O2 Flow Rate FiO2 10/29/18 20:12 Room Air 21 10/29/18 20:12 97 Room Air 21 10/29/18 20:11 72 18 Room Air 21 10/29/18 16:00 98.9 42 23 164/81 (108) 95 10/29/18 14:00 125/73 10/29/18 12:00 98.8 69 20 125/73 (90) 100 10/29/18 11:57 76 10/29/18 09:50 Nasal Cannula 2.0 28 10/29/18 09:50 96 Nasal Cannula 2.0 28 10/29/18 09:50 69 18 Nasal Cannula 2.0 28 10/29/18 09:00 Room Air 10/29/18 08:00 98.3 68 20 103/68 (80) 97 10/29/18 07:49 66 10/29/18 05:32 126/65 10/29/18 04:00 61 10/29/18 04:00 97.0 68 16 126/65 (85) 98 10/29/18 00:00 77 10/29/18 00:00 98.1 74 16 103/61 (75) 98 10/28/18 21:55 96 Nasal Cannula 2.0 28 10/28/18 21:55 Nasal Cannula 2.0 28 10/28/18 21:55 78 18 Nasal Cannula 2.0 28 Intake and Output 10/28/18 10/29/18 19:00 07:00 Intake Total 250 ml Output Total 1100 ml 350 ml Balance -1100 ml -100 ml Intake Oral 250 ml Output Urine Total 1100 ml 350 ml # Voids 1 Laboratory Tests 10/29/18 07:05: Troponin I 0.011 10/29/18 08:00: White Blood Count 3.2L, Red Blood Count 3.94L, Hemoglobin 13.0L, Hematocrit 38.9L, Mean Corpuscular Volume 99, Mean Corpuscular Hemoglobin 33.0H, Mean Corpuscular Hemoglobin Concent 33.4, Red Cell Distribution Width 10.8L, Platelet Count 126L, Mean Platelet Volume 4.9L, Neutrophils (%) (Auto) 58.7, Lymphocytes (%) (Auto) 27.0, Monocytes (%) (Auto) 11.3H, Eosinophils (%) (Auto) 1.7, Basophils (%) (Auto) 1.4 Height (Feet): 5 Height (Inches): 8.00 Weight (Pounds): 145 Neck: supple Cardiovascular: normal rate Respiratory/Chest: lungs clear Azucena Gr MD Oct 29, 2018 21:34
--- NOTE | 2018-10-29 23:50 | Cardiology Progress Note ---
Assessment/Plan Assessment/Plan 1. Non-cardiac chest pain following cocaine use, AMI is ruled out, no ECG evidence of ischemia, continue ASA and statins. Outpatient stress test if this recurs. Continue nitrates, consider CCB of hypertensive. 2. Accelerated HTN, start cardizem 30mg po tid. 3. Hx of asthma. Subjective Subjective Sinus rhythm at 72. On NC oxygen with FiO2 of 21. Objective Last 24 Hour Vital Signs Date Time Temp Pulse Resp B/P (MAP) Pulse Ox O2 Delivery O2 Flow Rate FiO2 10/29/18 22:14 165/80 10/29/18 21:00 Room Air 10/29/18 20:12 Room Air 21 10/29/18 20:12 97 Room Air 21 10/29/18 20:11 72 18 Room Air 21 10/29/18 20:00 98.7 72 23 163/80 (107) 95 10/29/18 20:00 80 10/29/18 16:00 98.9 42 23 164/81 (108) 95 10/29/18 14:00 125/73 10/29/18 12:00 98.8 69 20 125/73 (90) 100 10/29/18 11:57 76 10/29/18 09:50 Nasal Cannula 2.0 28 10/29/18 09:50 96 Nasal Cannula 2.0 28 10/29/18 09:50 69 18 Nasal Cannula 2.0 28 10/29/18 09:00 Room Air 10/29/18 08:00 98.3 68 20 103/68 (80) 97 10/29/18 07:49 66 10/29/18 05:32 126/65 10/29/18 04:00 61 10/29/18 04:00 97.0 68 16 126/65 (85) 98 10/29/18 00:00 77 10/29/18 00:00 98.1 74 16 103/61 (75) 98 Intake and Output 10/28/18 10/29/18 19:00 07:00 Intake Total 250 ml Output Total 1100 ml 350 ml Balance -1100 ml -100 ml Intake Oral 250 ml Output Urine Total 1100 ml 350 ml # Voids 1 2D Echo: EF 60%, Grade II LVDD, Mild MR, RVSP 34 mmHg Laboratory Tests Test 10/29/18 07:05 10/29/18 08:00 Troponin I 0.011 ng/mL (0.000-0.056) White Blood Count 3.2 K/UL (4.8-10.8) L Red Blood Count 3.94 M/UL (4.70-6.10) L Hemoglobin 13.0 G/DL (14.2-18.0) L Hematocrit 38.9 % (42.0-52.0) L Mean Corpuscular Volume 99 FL (80-99) Mean Corpuscular Hemoglobin 33.0 PG (27.0-31.0) H Mean Corpuscular Hemoglobin Concent 33.4 G/DL (32.0-36.0) Red Cell Distribution Width 10.8 % (11.6-14.8) L Platelet Count 126 K/UL (150-450) L Mean Platelet Volume 4.9 FL (6.5-10.1) L Neutrophils (%) (Auto) 58.7 % (45.0-75.0) Lymphocytes (%) (Auto) 27.0 % (20.0-45.0) Monocytes (%) (Auto) 11.3 % (1.0-10.0) H Eosinophils (%) (Auto) 1.7 % (0.0-3.0) Basophils (%) (Auto) 1.4 % (0.0-2.0) Microbiology Date/Time Source Procedure Growth Status 10/27/18 05:00 Rectum - Final NO CARBAPENEM-RESISTANT ENTEROBACTERI... Complete 10/27/18 05:00 Rectum VRE Culture - Final NO VANCOMYCIN RESISTANT ENTEROCOCCUS ... Complete Objective HEENT: PERRLA, EOMI, atraumatic, normocephalic. NECK: JVP <5 cm, no carotid bruit. HEART: Normal S1S2, regular rate and rhythm, no murmurs, gallops or rubs. LUNGS: Clear B/L. ABDOMEN: Soft, nontender/non-distended, + BS. EXTREMITIES: no edema, clubbing or cyanosis. Real Fong MD Oct 29, 2018 23:50
[2018-10-30] VITALS: BP 103/61
[2018-10-30] MEDS ORDERED: dilTIAZem HCl 30mg tab ORAL SCH (00:15)
[2018-10-30 04:00] VITALS: BP 107/65
--- NOTE | 2018-10-30 04:05 | NUR ---
NURSE NOTES: Observed pt sleeping on the bed. No acute distress noted at this time. Will continue to monitor.
[2018-10-30] MEDS: dilTIAZem HCl 30mg tab ORAL SCH ×4 (06:00→21:21)
--- NOTE | 2018-10-30 07:33 | NUR ---
HAND-OFF: Report given to JOHN Hooks. Observed pt sleeping on the bed. No acute distress noted at this time.
--- NOTE | 2018-10-30 07:35 | NUR ---
NURSE NOTES: Received update bedside report from Angelic RN. Pt. in bed having breakfast. No sign of distress. Denies pain at present. IV at right AC #18g. in placed SL. Call light within reach. Will cont. to monitor.
[2018-10-30 08:00] VITALS: BP 111/67
--- NOTE | 2018-10-30 09:54 | NUR ---
CASE MANAGEMENT:REVIEW 10/30/2018 SI: CP. T 97.6 HR 73 RR 20 B/P 111/67 SATS 97% ON RA NO LABS TODAY IS: ISORDIL PO Q8HR PROTONIX PO QAM : TELEMETRY STATUS PLAN: PT EVAL 2DECHO>> EF 60%
[2018-10-30 12:00] VITALS: BP 111/72
[2018-10-30 16:00] VITALS: BP 127/81
--- NOTE | 2018-10-30 17:11 | Cardiology Progress Note ---
Assessment/Plan Assessment/Plan 1. Non-cardiac chest pain following cocaine use, AMI is ruled out, no ECG evidence of ischemia, continue ASA and statins. Outpatient stress test if this recurs. Continue nitrates, consider CCB of hypertensive. 2. Accelerated HTN, well controlled, continue cardizem. 3. Hx of asthma. Subjective Subjective Sinus rhythm at 69. Objective Last 24 Hour Vital Signs Date Time Temp Pulse Resp B/P (MAP) Pulse Ox O2 Delivery O2 Flow Rate FiO2 10/30/18 16:00 98.6 69 20 127/81 (96) 96 10/30/18 14:00 70 111/72 10/30/18 14:00 111/72 10/30/18 12:02 66 10/30/18 12:00 98.3 70 20 111/72 (85) 97 10/30/18 09:00 Room Air 10/30/18 08:41 Room Air 21 10/30/18 08:41 94 Room Air 21 10/30/18 08:41 64 18 Room Air 21 10/30/18 08:00 97.6 73 20 111/67 (82) 97 10/30/18 07:47 67 10/30/18 06:12 107/65 10/30/18 06:00 60 107/65 10/30/18 04:00 97.7 60 20 107/65 (79) 96 10/30/18 04:00 65 10/30/18 00:15 67 104/59 10/30/18 00:00 74 10/30/18 00:00 98.7 64 19 103/61 (75) 96 10/29/18 22:14 165/80 10/29/18 21:00 Room Air 10/29/18 20:12 Room Air 21 10/29/18 20:12 97 Room Air 21 10/29/18 20:11 72 18 Room Air 21 10/29/18 20:00 98.7 72 23 163/80 (107) 95 10/29/18 20:00 80 Intake and Output 10/29/18 10/30/18 18:59 06:59 # Voids 5 2 2D Echo: EF 60%, Grade II LVDD, Mild MR, RVSP 34 mmHg Objective HEENT: PERRLA, EOMI, atraumatic, normocephalic. NECK: JVP <5 cm, no carotid bruit. HEART: Normal S1S2, regular rate and rhythm, no murmurs, gallops or rubs. LUNGS: Clear B/L. ABDOMEN: Soft, nontender/non-distended, + BS. EXTREMITIES: no edema, clubbing or cyanosis. Real Fong MD Oct 30, 2018 17:11
--- NOTE | 2018-10-30 18:30 | General Progress Note ---
Assessment/Plan Problem List: (1) Acute coronary syndrome ICD Codes: I24.9 - Acute ischemic heart disease, unspecified SNOMED: 868231828 (2) Chest pain ICD Codes: R07.9 - Chest pain, unspecified SNOMED: 67678555 (3) Cocaine abuse ICD Codes: F14.10 - Cocaine abuse, uncomplicated SNOMED: 69997982 Status: progressing Assessment/Plan reviewed chart and labs claims is blind sw consult drug abuse cp r/o acs Subjective ROS Limited/Unobtainable: Yes Constitutional: Reports: no symptoms Allergies: Coded Allergies: No Known Allergies (Unverified , 10/26/18) Objective Last 24 Hour Vital Signs Date Time Temp Pulse Resp B/P (MAP) Pulse Ox O2 Delivery O2 Flow Rate FiO2 10/30/18 16:00 98.6 69 20 127/81 (96) 96 10/30/18 15:49 70 10/30/18 14:00 70 111/72 10/30/18 14:00 111/72 10/30/18 12:02 66 10/30/18 12:00 98.3 70 20 111/72 (85) 97 10/30/18 09:00 Room Air 10/30/18 08:41 Room Air 21 10/30/18 08:41 94 Room Air 21 10/30/18 08:41 64 18 Room Air 21 10/30/18 08:00 97.6 73 20 111/67 (82) 97 10/30/18 07:47 67 10/30/18 06:12 107/65 10/30/18 06:00 60 107/65 10/30/18 04:00 97.7 60 20 107/65 (79) 96 10/30/18 04:00 65 10/30/18 00:15 67 104/59 10/30/18 00:00 74 10/30/18 00:00 98.7 64 19 103/61 (75) 96 10/29/18 22:14 165/80 10/29/18 21:00 Room Air 10/29/18 20:12 Room Air 21 10/29/18 20:12 97 Room Air 21 10/29/18 20:11 72 18 Room Air 21 10/29/18 20:00 98.7 72 23 163/80 (107) 95 10/29/18 20:00 80 Intake and Output 10/29/18 10/30/18 18:59 06:59 # Voids 5 2 Height (Feet): 5 Height (Inches): 8.00 Weight (Pounds): 145 Neck: supple Cardiovascular: normal rate Respiratory/Chest: lungs clear Abdomen: soft Azucena Gr MD Oct 30, 2018 18:29
--- NOTE | 2018-10-30 19:19 | NUR ---
HAND-OFF: Report given to Floridalma LOPEZ. Pt. remain stable.
[2018-10-30] MEDS ORDERED: NS 275ml ONE (19:28)
--- NOTE | 2018-10-30 19:30 | NUR ---
NURSE NOTES: Report received from JOHN Hooks. Pt is sleeping in bed in stable condition. Pt is awake, alert, and oriented x4. Pt is on room air and breathing is even and unlabored. No acute distress noted. IV site is asymptomatic, patent, and intact. Bed is in lowest position with brake engaged, side rails up x3, and bed alarm on. Call light and side table placed within reach. Will continue to monitor.
[2018-10-30 20:00] VITALS: BP 146/65
--- NOTE | 2018-10-30 21:31 | General Progress Note ---
Assessment/Plan Problem List: (1) Cocaine abuse ICD Codes: F14.10 - Cocaine abuse, uncomplicated SNOMED: 53993162 (2) encephalopathy due to toxin Assessment/Plan (1) Cocaine abuse ICD Codes: F14.10 - Cocaine abuse, uncomplicated SNOMED: 83896513 (2) encephalopathy due to toxin Status: not improved Assessment/Plan Seroquel prn restraints as needed provided ro/st Subjective Neurologic/Psychiatric: Reports: anxiety, depressed, emotional problems Allergies: Coded Allergies: No Known Allergies (Unverified , 10/26/18) Objective Last 24 Hour Vital Signs Date Time Temp Pulse Resp B/P (MAP) Pulse Ox O2 Delivery O2 Flow Rate FiO2 10/30/18 21:21 69 146/65 10/30/18 21:21 146/65 10/30/18 20:00 98.6 69 20 146/65 (92) 100 10/30/18 20:00 73 10/30/18 19:41 95 Room Air 21 10/30/18 19:41 Room Air 21 10/30/18 19:40 68 18 Room Air 21 10/30/18 16:00 98.6 69 20 127/81 (96) 96 10/30/18 15:49 70 10/30/18 14:00 70 111/72 10/30/18 14:00 111/72 10/30/18 12:02 66 10/30/18 12:00 98.3 70 20 111/72 (85) 97 10/30/18 09:00 Room Air 10/30/18 08:41 Room Air 21 10/30/18 08:41 94 Room Air 21 10/30/18 08:41 64 18 Room Air 21 10/30/18 08:00 97.6 73 20 111/67 (82) 97 10/30/18 07:47 67 10/30/18 06:12 107/65 10/30/18 06:00 60 107/65 10/30/18 04:00 97.7 60 20 107/65 (79) 96 10/30/18 04:00 65 10/30/18 00:15 67 104/59 10/30/18 00:00 74 10/30/18 00:00 98.7 64 19 103/61 (75) 96 10/29/18 22:14 165/80 Intake and Output 10/29/18 10/30/18 19:00 07:00 # Voids 5 2 Height (Feet): 5 Height (Inches): 8.00 Weight (Pounds): 145 General Appearance: no apparent distress, alert Neurologic: oriented x 3, responsive, depressed affect Kourtney Lester MD Oct 30, 2018 21:31
--- NOTE | 2018-10-30 23:45 | NUR ---
HAND-OFF: Report given to Adry Evans RN. Pt is resting in bed in stable condition. No acute distress noted. Endorsed plan of care.
[2018-10-31] VITALS: BP 111/59
[2018-10-31 04:00] VITALS: BP 99/67
[2018-10-31] MEDS: dilTIAZem HCl 30mg tab ORAL SCH ×3 (05:41→22:18)
--- NOTE | 2018-10-31 06:40 | NUR ---
REPORT ENDORSED TO DALIA. PT.DENIES DISCOMFORT.
--- NOTE | 2018-10-31 07:32 | NUR ---
NURSE NOTES: Received update bedside report from Floridalma LOPEZ. Pt. up sitting at the edge of the bed having breakfast. No sign of distress. Denies pain at present. IV at right AC in placed SL. Call light within reach. Will cont. to monitor.
[2018-10-31 08:00] VITALS: BP 110/71
--- NOTE | 2018-10-31 09:13 | NUR ---
CASE MANAGEMENT:REVIEW 10/31/2018 SI: CP. T 98.5 HR 66 RR 20 B/P 110/71 SATS 95% ON RA NO LABS TODAY IS: ISORDIL PO Q8HR PROTONIX PO QAM : TELEMETRY STATUS
[2018-10-31 12:00] VITALS: BP 138/68
--- NOTE | 2018-10-31 13:07 | Infectious Diseases Prog Note ---
Assessment/Plan Assessment/Plan A; Leukopenia Pyuria Cocaine abuse Chest pain Elevated transaminase Hepatitis C O; Observe off antibiotic Subjective ROS Limited/Unobtainable: No Constitutional: Reports: no symptoms Respiratory: Reports: productive cough Genitourinary: Reports: other Musculoskeletal: Reports: other - numbness in left arm Allergies: Coded Allergies: No Known Allergies (Unverified , 10/26/18) Objective Vital Signs Last 24 Hour Vital Signs Date Time Temp Pulse Resp B/P (MAP) Pulse Ox O2 Delivery O2 Flow Rate FiO2 10/31/18 09:00 Room Air 10/31/18 08:00 98.5 66 20 110/71 (84) 95 10/31/18 07:48 72 10/31/18 07:45 97 Room Air 21 10/31/18 07:45 Room Air 21 10/31/18 07:45 66 18 Room Air 21 10/31/18 05:41 62 99/67 10/31/18 05:41 99/67 10/31/18 04:00 62 10/31/18 04:00 98.6 65 20 99/67 (78) 95 10/31/18 00:00 98.3 69 20 111/59 (76) 97 10/31/18 00:00 64 10/30/18 21:21 69 146/65 10/30/18 21:21 146/65 10/30/18 21:00 Room Air 10/30/18 20:00 98.6 69 20 146/65 (92) 100 10/30/18 20:00 73 10/30/18 19:41 95 Room Air 21 10/30/18 19:41 Room Air 21 10/30/18 19:40 68 18 Room Air 21 10/30/18 16:00 98.6 69 20 127/81 (96) 96 10/30/18 15:49 70 10/30/18 14:00 70 111/72 10/30/18 14:00 111/72 Height (Feet): 5 Height (Inches): 8.00 Weight (Pounds): 145 General Appearance: no acute distress HEENT: mucous membranes moist Respiratory/Chest: lungs clear Cardiovascular: normal rate Abdomen: soft, non tender Extremities: no edema Neurologic/Psychiatric: alert, oriented x 3, responsive Current Medications Medications (Trade) Dose Ordered Sig/Jona Route PRN Reason Start Time Stop Time Status Last Admin Dose Admin Acetaminophen (Tylenol) 650 mg Q4H PRN ORAL Mild Pain (Pain Scale 1-3) 10/26/18 22:15 11/25/18 22:14 Acetaminophen (Tylenol) 650 mg Q4H PRN ORAL fever 10/26/18 22:15 11/25/18 22:14 Al Hydroxide/Mg Hydroxide (Mylanta) 30 ml EVERY 4 HOURS PRN ORAL Abdominal cramps 10/26/18 23:15 11/25/18 23:14 Albuterol/ Ipratropium (Albuterol/ Ipratropium) 3 ml EVERY 4 HOURS PRN HHN Shortness of Breath 10/26/18 22:15 10/31/18 22:14 Dextrose (Dextrose 50%) 25 ml Q30M PRN IV Hypoglycemia 10/26/18 22:15 11/25/18 22:14 Dextrose (Dextrose 50%) 50 ml Q30M PRN IV Hypoglycemia 10/26/18 22:15 11/25/18 22:14 Diltiazem HCl (Cardizem) 30 mg EVERY 8 HOURS ORAL 10/30/18 00:00 11/29/18 00:00 10/30/18 21:21 Haloperidol Lactate (Haldol) 5 mg Q6H PRN IM Agitation 10/27/18 21:45 11/26/18 21:44 Isosorbide Dinitrate (Isordil) 10 mg EVERY 8 HOURS ORAL 10/27/18 22:00 11/26/18 21:59 10/30/18 21:21 Nitroglycerin (Ntg) 0.4 mg Q5M PRN SL Prn Chest Pain 10/26/18 22:15 11/25/18 22:14 Pantoprazole (Protonix) 40 mg ACBREAKFAST ORAL 10/27/18 06:30 11/26/18 06:29 10/30/18 06:12 Quetiapine Fumarate (SEROquel) 25 mg EVERY 6 HOURS PRN ORAL For Anxiety 10/27/18 21:45 11/26/18 21:44 10/27/18 22:03 Chente Canchola MD Oct 31, 2018 13:07
--- NOTE | 2018-10-31 14:57 | NUR ---
PT Note Attempted to see patient for treatment but patient refused.
[2018-10-31 16:00] VITALS: BP 139/82
--- NOTE | 2018-10-31 19:34 | NUR ---
HAND-OFF: Report given to Ming RN. Pt. remain stable.
[2018-10-31 20:00] VITALS: BP 137/97
--- NOTE | 2018-10-31 20:00 | NUR ---
NURSE NOTES: Pt awake/alert, sitting in bed, breathing easily on room air, denies SOB and denies pain at this time. Vital signs stable with SR @ 67. IV access right a/c flushed with 10 ml NS and locked. Bed left in low position, side rails up x 2 and call light left near pt's hand.
--- NOTE | 2018-10-31 20:07 | Cardiology Progress Note ---
Assessment/Plan Assessment/Plan 1. Non-cardiac chest pain following cocaine use, AMI is ruled out, no ECG evidence of ischemia, continue ASA and statins. Outpatient stress test if this recurs. Continue nitrates, consider CCB of hypertensive. 2. Accelerated HTN, well controlled, continue cardizem. 3. Hx of asthma. Subjective Subjective Sinus rhythm at 77. Objective Last 24 Hour Vital Signs Date Time Temp Pulse Resp B/P (MAP) Pulse Ox O2 Delivery O2 Flow Rate FiO2 10/31/18 16:00 98.6 77 20 139/82 (101) 97 10/31/18 15:41 75 10/31/18 12:00 98.6 64 20 138/68 (91) 96 10/31/18 11:48 66 10/31/18 09:00 Room Air 10/31/18 08:00 98.5 66 20 110/71 (84) 95 10/31/18 07:48 72 10/31/18 07:45 97 Room Air 21 10/31/18 07:45 Room Air 21 10/31/18 07:45 66 18 Room Air 21 10/31/18 05:41 62 99/67 10/31/18 05:41 99/67 10/31/18 04:00 62 10/31/18 04:00 98.6 65 20 99/67 (78) 95 10/31/18 00:00 98.3 69 20 111/59 (76) 97 10/31/18 00:00 64 10/30/18 21:21 69 146/65 10/30/18 21:21 146/65 10/30/18 21:00 Room Air Intake and Output 10/30/18 10/31/18 18:59 06:59 Intake Total 730 ml Output Total 750 ml 1000 ml Balance -20 ml -1000 ml Intake Oral 730 ml Output Urine Total 750 ml 1000 ml # Voids 2 2D Echo: EF 60%, Grade II LVDD, Mild MR, RVSP 34 mmHg Objective HEENT: PERRLA, EOMI, atraumatic, normocephalic. NECK: JVP <5 cm, no carotid bruit. HEART: Normal S1S2, regular rate and rhythm, no murmurs, gallops or rubs. LUNGS: Clear B/L. ABDOMEN: Soft, nontender/non-distended, + BS. EXTREMITIES: no edema, clubbing or cyanosis. Rael Fong MD Oct 31, 2018 20:07
--- NOTE | 2018-10-31 20:31 | General Progress Note ---
Assessment/Plan Problem List: (1) Acute coronary syndrome ICD Codes: I24.9 - Acute ischemic heart disease, unspecified SNOMED: 881519286 (2) Chest pain ICD Codes: R07.9 - Chest pain, unspecified SNOMED: 13069413 (3) Cocaine abuse ICD Codes: F14.10 - Cocaine abuse, uncomplicated SNOMED: 30285917 Status: stable, progressing Assessment/Plan atypical chest pain neg trop claims is blind sw consult drug abuse cp r/o acs Subjective ROS Limited/Unobtainable: Yes Allergies: Coded Allergies: No Known Allergies (Unverified , 10/26/18) Objective Last 24 Hour Vital Signs Date Time Temp Pulse Resp B/P (MAP) Pulse Ox O2 Delivery O2 Flow Rate FiO2 10/31/18 19:55 97 Room Air 21 10/31/18 19:55 82 18 Room Air 21 10/31/18 19:55 Room Air 21 10/31/18 16:00 98.6 77 20 139/82 (101) 97 10/31/18 15:41 75 10/31/18 12:00 98.6 64 20 138/68 (91) 96 10/31/18 11:48 66 10/31/18 09:00 Room Air 10/31/18 08:00 98.5 66 20 110/71 (84) 95 10/31/18 07:48 72 10/31/18 07:45 97 Room Air 21 10/31/18 07:45 Room Air 21 10/31/18 07:45 66 18 Room Air 21 10/31/18 05:41 62 99/67 10/31/18 05:41 99/67 10/31/18 04:00 62 10/31/18 04:00 98.6 65 20 99/67 (78) 95 10/31/18 00:00 98.3 69 20 111/59 (76) 97 10/31/18 00:00 64 10/30/18 21:21 69 146/65 10/30/18 21:21 146/65 10/30/18 21:00 Room Air Intake and Output 10/30/18 10/31/18 18:59 06:59 Intake Total 730 ml Output Total 750 ml 1000 ml Balance -20 ml -1000 ml Intake Oral 730 ml Output Urine Total 750 ml 1000 ml # Voids 2 Height (Feet): 5 Height (Inches): 8.00 Weight (Pounds): 145 Neck: supple Cardiovascular: normal rate Respiratory/Chest: lungs clear Abdomen: soft Azucena Gr MD Oct 31, 2018 20:31
--- NOTE | 2018-10-31 23:16 | Cardiology Progress Note ---
Assessment/Plan Assessment/Plan 1. Non-cardiac chest pain following cocaine use, AMI is ruled out, no ECG evidence of ischemia, continue ASA and statins. Outpatient stress test if this recurs. Continue nitrates, consider CCB of hypertensive. 2. Accelerated HTN, well controlled, continue cardizem. 3. Hx of asthma. Subjective Subjective Sinus rhythm at 77. Objective Last 24 Hour Vital Signs Date Time Temp Pulse Resp B/P (MAP) Pulse Ox O2 Delivery O2 Flow Rate FiO2 10/31/18 22:18 68 137/97 10/31/18 22:18 137/97 10/31/18 21:00 Room Air 10/31/18 20:00 68 10/31/18 20:00 98.0 66 18 137/97 (110) 96 10/31/18 19:55 97 Room Air 21 10/31/18 19:55 82 18 Room Air 21 10/31/18 19:55 Room Air 21 10/31/18 16:00 98.6 77 20 139/82 (101) 97 10/31/18 15:41 75 10/31/18 12:00 98.6 64 20 138/68 (91) 96 10/31/18 11:48 66 10/31/18 09:00 Room Air 10/31/18 08:00 98.5 66 20 110/71 (84) 95 10/31/18 07:48 72 10/31/18 07:45 97 Room Air 21 10/31/18 07:45 Room Air 21 10/31/18 07:45 66 18 Room Air 21 10/31/18 05:41 62 99/67 10/31/18 05:41 99/67 10/31/18 04:00 62 10/31/18 04:00 98.6 65 20 99/67 (78) 95 10/31/18 00:00 98.3 69 20 111/59 (76) 97 10/31/18 00:00 64 Intake and Output 10/30/18 10/31/18 18:59 06:59 Intake Total 730 ml Output Total 750 ml 1000 ml Balance -20 ml -1000 ml Intake Oral 730 ml Output Urine Total 750 ml 1000 ml # Voids 2 Objective HEENT: PERRLA, EOMI, atraumatic, normocephalic. NECK: JVP <5 cm, no carotid bruit. HEART: Normal S1S2, regular rate and rhythm, no murmurs, gallops or rubs. LUNGS: Clear B/L. ABDOMEN: Soft, nontender/non-distended, + BS. EXTREMITIES: no edema, clubbing or cyanosis. Real Fong MD Oct 31, 2018 23:16
[2018-11-01] VITALS: BP 100/62
[2018-11-01 04:00] VITALS: BP 96/61
[2018-11-01] MEDS: dilTIAZem HCl 30mg tab ORAL SCH ×3 (05:41→21:28)
--- NOTE | 2018-11-01 07:37 | NUR ---
NURSE NOTES: Received report from JOHN Lai. Patient in bed resting, SR with HR 68. Denies pain at this time. No active s/s cardiac, respiratory distress noticed at this time. IV site asymptomatic, patent, intact. Bed in lowest position, side rails up x3, call light within reach. Will continue to monitor.
[2018-11-01 08:00] VITALS: BP 96/61
--- NOTE | 2018-11-01 10:00 | NUR ---
NURSE NOTES: Dr. Fong made aware patient SR since admission and denies pain at this point. Per Dr. 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 Will continue to monitor.
--- NOTE | 2018-11-01 10:29 | General Progress Note ---
Assessment/Plan Problem List: (1) Chest pain ICD Codes: R07.9 - Chest pain, unspecified SNOMED: 11176174 (2) Cocaine abuse ICD Codes: F14.10 - Cocaine abuse, uncomplicated SNOMED: 29631183 (3) multiple joint ost Status: doing well, stable Assessment/Plan Will continue to F/U. Subjective Constitutional: Denies: no symptoms, chills, diaphoresis, fever, malaise, weakness, other Cardiovascular: Reports: chest pain - occasional, palpitations; Denies: no symptoms, edema, irregular heart rate, lightheadedness, syncope, other Respiratory: Reports: cough, shortness of breath, SOB with excertion, sputum Gastrointestinal/Abdominal: Denies: no symptoms, abdomen distended, abdominal pain, black stools, tarry stools, blood in stool, constipated, diarrhea, difficulty swallowing, nausea, poor appetite, poor fluid intake, rectal bleeding , vomiting, other Genitourinary: Denies: no symptoms, burning, discharge, frequency, flank pain, hematuria, incontinence, pain, urgency, other Neurologic/Psychiatric: Denies: no symptoms, anxiety, depressed, emotional problems, headache, numbness, paresthesia, pre-existing deficit, seizure, tingling, tremors, weakness, other Allergies: Coded Allergies: No Known Allergies (Unverified , 10/26/18) Subjective Pt is stable on Tylenol. No complain of pain except for occasional chest pain which is associated with COPD. Objective Last 24 Hour Vital Signs Date Time Temp Pulse Resp B/P (MAP) Pulse Ox O2 Delivery O2 Flow Rate FiO2 11/01/18 09:00 Room Air 11/01/18 08:08 Room Air 11/01/18 08:07 66 16 Room Air 21 11/01/18 08:07 94 Room Air 21 11/01/18 08:00 97.9 60 18 96/61 (73) 95 11/01/18 05:41 68 96/61 11/01/18 05:41 96/61 11/01/18 04:00 68 11/01/18 04:00 98.2 59 20 96/61 (73) 95 11/01/18 00:00 72 11/01/18 00:00 98.4 67 20 100/62 (75) 99 10/31/18 22:18 68 137/97 10/31/18 22:18 137/97 10/31/18 21:00 Room Air 10/31/18 20:00 68 10/31/18 20:00 98.0 66 18 137/97 (110) 96 10/31/18 19:55 97 Room Air 21 10/31/18 19:55 82 18 Room Air 21 10/31/18 19:55 Room Air 21 10/31/18 16:00 98.6 77 20 139/82 (101) 97 10/31/18 15:41 75 10/31/18 12:00 98.6 64 20 138/68 (91) 96 10/31/18 11:48 66 Intake and Output 10/31/18 11/01/18 19:00 07:00 Intake Total 950 ml Output Total 1400 ml 800 ml Balance -450 ml -800 ml Intake Oral 950 ml Output Urine Total 1400 ml 800 ml # Voids 3 Height (Feet): 5 Height (Inches): 8.00 Weight (Pounds): 145 General Appearance: WD/WN EENT: PERRL/EOMI Neck: non-tender Cardiovascular: normal rate Respiratory/Chest: decreased breath sounds Abdomen: non tender, soft Edema: no edema noted Arm (L), no edema noted Arm (R), no edema noted Leg (L), no edema noted Leg (R), no edema noted Pedal (L), no edema noted Pedal (R), no edema noted Generalized Neurologic: alert, responsive Mook Enamorado MD Nov 01, 2018 10:29
--- NOTE | 2018-11-01 11:15 | NUR ---
Social Service Note SYEDA met with patient to discuss impending dc plan for today. Patient is alert, oriented and verbally responsive. Patient states he doesn't require assistance with placement upon discharge. Patient states he has a safe and familiar place to return to upon discharge. Patient doesn't have a PCP and states he only follows up at [facility]. [facility] list will be provided upon discharge. SYEDA contacted [facility] [phone], [address]. [place], due to the [place] [facility] holiday outpatient is closed. Patient provided contact information for follow up. Patient states he will walk-in as needed. Patient with appropriate clothing and will be provided a TAP card for transportation needed. SYEDA discussed homeless checklist with primary nurse to be completed upon discharge. Will continue to be available as needed.
[2018-11-01 12:00] VITALS: BP 110/65
--- NOTE | 2018-11-01 13:45 | NUR ---
NURSE NOTES: Dr. Gr made aware patient cleared from security shift manager stand point. Per Dr. Gr transfer patient to med-surgi unit. Will continue to monitor
[2018-11-01 16:00] VITALS: BP 106/68
--- NOTE | 2018-11-01 16:17 | NUR ---
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 97.3 HR 63 RR 20 B/P 110/65 RA 98% IS: CARDIZEM PO ISORDIL PO SEROQUEL PO PROTONIX PO DOWN GRADE MED/SURG MED/SURGE STATUS
--- NOTE | 2018-11-01 19:22 | NUR ---
HAND-OFF: Report given to JOHN Corona.
--- NOTE | 2018-11-01 19:23 | NUR ---
NURSE NOTES: Received report from Swati LOPEZ. Pt was resting in the bed w.o any acute distress noted. Pt is AO x3. business transformation analyst removed by am shift nurse. Will transfer the pt as soon as there is a room available. Will follow the plan of care.
[2018-11-01] MEDS ORDERED: Haloperidol 5mg/ml Inj IM PRN (20:14)
[2018-11-01] MEDS ORDERED: Nitroglycerin Subl 0.4mg tab SL PRN (20:15)
--- NOTE | 2018-11-01 20:20 | NUR ---
NURSE NOTES: Pt transferred to and report given to Lauren LOPEZ at . No acute distress noted. Pt is AO x3. monitoring analyst was removed before starting the shift by AM shift RN. Belongings list signed. Endorsed the plan of care. Addendum: 11/01/18 at 2037 by MARLENA ALFREDO RN Shoes are missing during the transfer from to [place] floor. Unable to find it in the room. CN notified. Cosigned with nurse that the shoes are missing.
--- NOTE | 2018-11-01 20:30 | NUR ---
NURSE NOTES: Pt transferred via hospital bed in stable condition and w/belongings accounted for. Pt A&Ox4 and in no apparent distress. IV site intact/asymptomatic & skin intact. Oriented pt to room; bed in lowest position and call light within reach. Will continue to monitor.
--- NOTE | 2018-11-01 20:44 | NUR ---
NURSE NOTES: Found the shoes from room 218. Pt received the shoes in room 302-1. RN notified.
[2018-11-01 20:55] VITALS: BP 116/74
--- NOTE | 2018-11-01 21:21 | General Progress Note ---
Assessment/Plan Problem List: (1) Cocaine abuse ICD Codes: F14.10 - Cocaine abuse, uncomplicated SNOMED: 18337715 (2) encephalopathy due to toxin Assessment/Plan (1) Cocaine abuse ICD Codes: F14.10 - Cocaine abuse, uncomplicated SNOMED: 78595727 (2) encephalopathy due to toxin Status: not improved Assessment/Plan Seroquel prn restraints as needed provided ro/st Subjective Neurologic/Psychiatric: Reports: anxiety, depressed Allergies: Coded Allergies: No Known Allergies (Unverified , 10/26/18) Objective Last 24 Hour Vital Signs Date Time Temp Pulse Resp B/P (MAP) Pulse Ox O2 Delivery O2 Flow Rate FiO2 11/01/18 20:55 98.3 63 18 116/74 (88) 99 11/01/18 16:00 98.6 69 20 106/68 (81) 97 11/01/18 16:00 68 11/01/18 14:55 69 118/75 11/01/18 14:55 118/75 11/01/18 12:00 97.3 63 20 110/65 (80) 97 11/01/18 09:00 Room Air 11/01/18 08:08 Room Air 21 11/01/18 08:07 66 16 Room Air 21 11/01/18 08:07 94 Room Air 21 11/01/18 08:00 97.9 60 18 96/61 (73) 95 11/01/18 08:00 64 11/01/18 05:41 68 96/61 11/01/18 05:41 96/61 11/01/18 04:00 68 11/01/18 04:00 98.2 59 20 96/61 (73) 95 11/01/18 00:00 72 11/01/18 00:00 98.4 67 20 100/62 (75) 99 10/31/18 22:18 68 137/97 10/31/18 22:18 137/97 Intake and Output 10/31/18 11/01/18 19:00 07:00 Intake Total 950 ml Output Total 1400 ml 800 ml Balance -450 ml -800 ml Intake Oral 950 ml Output Urine Total 1400 ml 800 ml # Voids 3 Height (Feet): 5 Height (Inches): 8.00 Weight (Pounds): 145 General Appearance: no apparent distress, alert Neurologic: oriented x 3, responsive, depressed affect Farhadi,Pantea MD Nov 01, 2018 21:21
--- NOTE | 2018-11-01 21:44 | General Progress Note ---
Assessment/Plan Problem List: (1) Acute coronary syndrome ICD Codes: I24.9 - Acute ischemic heart disease, unspecified SNOMED: 102813071 (2) Chest pain ICD Codes: R07.9 - Chest pain, unspecified SNOMED: 07467591 (3) Cocaine abuse ICD Codes: F14.10 - Cocaine abuse, uncomplicated SNOMED: 02539833 Status: progressing Assessment/Plan weak needs pt/ot afebrile reveiwed chart and labs drug abuse cp r/o acs Subjective ROS Limited/Unobtainable: Yes Allergies: Coded Allergies: No Known Allergies (Unverified , 10/26/18) Objective Last 24 Hour Vital Signs Date Time Temp Pulse Resp B/P (MAP) Pulse Ox O2 Delivery O2 Flow Rate FiO2 11/01/18 21:28 116/74 11/01/18 21:28 63 116/74 11/01/18 20:55 98.3 63 18 116/74 (88) 99 11/01/18 16:00 98.6 69 20 106/68 (81) 97 11/01/18 16:00 68 11/01/18 14:55 69 118/75 11/01/18 14:55 118/75 11/01/18 12:00 97.3 63 20 110/65 (80) 97 11/01/18 09:00 Room Air 11/01/18 08:08 Room Air 21 11/01/18 08:07 66 16 Room Air 21 11/01/18 08:07 94 Room Air 21 11/01/18 08:00 97.9 60 18 96/61 (73) 95 11/01/18 08:00 64 11/01/18 05:41 68 96/61 11/01/18 05:41 96/61 11/01/18 04:00 68 11/01/18 04:00 98.2 59 20 96/61 (73) 95 11/01/18 00:00 72 11/01/18 00:00 98.4 67 20 100/62 (75) 99 10/31/18 22:18 68 137/97 10/31/18 22:18 137/97 Intake and Output 10/31/18 11/01/18 18:59 06:59 Intake Total 950 ml Output Total 1400 ml 800 ml Balance -450 ml -800 ml Intake Oral 950 ml Output Urine Total 1400 ml 800 ml # Voids 3 Height (Feet): 5 Height (Inches): 8.00 Weight (Pounds): 145 Neck: normal alignment Cardiovascular: normal rate Respiratory/Chest: lungs clear Azucena Gr MD Nov 01, 2018 21:43
--- NOTE | 2018-11-01 22:26 | Cardiology Progress Note ---
Assessment/Plan Assessment/Plan 1. Non-cardiac chest pain following cocaine use, AMI is ruled out, no ECG evidence of ischemia, continue ASA and statins. Outpatient stress test if this recurs. Continue nitrates, consider CCB of hypertensive. 2. Accelerated HTN, well controlled, continue cardizem. 3. Hx of asthma. Subjective Subjective Not on the telemetry unit. No cardiac events. Objective Last 24 Hour Vital Signs Date Time Temp Pulse Resp B/P (MAP) Pulse Ox O2 Delivery O2 Flow Rate FiO2 11/01/18 21:28 116/74 11/01/18 21:28 63 116/74 11/01/18 21:00 Room Air 11/01/18 20:55 98.3 63 18 116/74 (88) 99 11/01/18 16:00 98.6 69 20 106/68 (81) 97 11/01/18 16:00 68 11/01/18 14:55 69 118/75 11/01/18 14:55 118/75 11/01/18 12:00 97.3 63 20 110/65 (80) 97 11/01/18 09:00 Room Air 11/01/18 08:08 Room Air 21 11/01/18 08:07 66 16 Room Air 21 11/01/18 08:07 94 Room Air 21 11/01/18 08:00 97.9 60 18 96/61 (73) 95 11/01/18 08:00 64 11/01/18 05:41 68 96/61 11/01/18 05:41 96/61 11/01/18 04:00 68 11/01/18 04:00 98.2 59 20 96/61 (73) 95 11/01/18 00:00 72 11/01/18 00:00 98.4 67 20 100/62 (75) 99 Intake and Output 10/31/18 11/01/18 18:59 06:59 Intake Total 950 ml Output Total 1400 ml 800 ml Balance -450 ml -800 ml Intake Oral 950 ml Output Urine Total 1400 ml 800 ml # Voids 3 2D Echo: EF 60%, Grade II LVDD, Mild MR, RVSP 34 mmHg Objective HEENT: PERRLA, EOMI, atraumatic, normocephalic. NECK: JVP <5 cm, no carotid bruit. HEART: Normal S1S2, regular rate and rhythm, no murmurs, gallops or rubs. LUNGS: Clear B/L. ABDOMEN: Soft, nontender/non-distended, + BS. EXTREMITIES: no edema, clubbing or cyanosis. Real Fong MD Nov 01, 2018 22:25
[2018-11-02 00:04] VITALS: BP 114/70
[2018-11-02 04:02] VITALS: BP 98/63
[2018-11-02 06:27] VITALS: BP 121/68
[2018-11-02] MEDS: dilTIAZem HCl 30mg tab ORAL SCH (06:29)
--- NOTE | 2018-11-02 07:29 | NUR ---
HAND-OFF: Report given to JOHN Aguilar.
--- NOTE | 2018-11-02 07:35 | NUR ---
NURSE NOTES: WALKING ROUNDS DONE WITH OUTGOING RN. PATIENT AWAKE IN BED HAVING BREAKFAST. PATIENT STATE SHE HAS PARTIAL VISION AND ABLE TO PERFORM MOST OF HIS ADLS. DENIES CP THIS AM. DISCUSSED PALN OF CARE FOR THE DAY. VERBALIZED UNDERSTANDING. CALL LIGHT WITHIN REACH.
[2018-11-02 08:00] VITALS: BP 94/59
--- NOTE | 2018-11-02 10:03 | General Progress Note ---
Assessment/Plan Problem List: (1) Chest pain ICD Codes: R07.9 - Chest pain, unspecified SNOMED: 53948844 (2) Cocaine abuse ICD Codes: F14.10 - Cocaine abuse, uncomplicated SNOMED: 81351679 (3) multiple joint ost Status: stable Assessment/Plan Will continue to F/U. Subjective Constitutional: Denies: no symptoms, chills, diaphoresis, fever, malaise, weakness, other HEENT: Denies: no symptoms, eye pain, blurred vision, tearing, double vision, ear pain, ear discharge, nose pain, nose congestion, throat pain, throat swelling, mouth pain, mouth swelling, other Cardiovascular: Reports: chest pain - occasionally; Denies: no symptoms, edema , irregular heart rate, lightheadedness, palpitations, syncope, other Respiratory: Denies: no symptoms, cough, orthopnea, shortness of breath, SOB with excertion, SOB at rest, sputum, stridor, wheezing, other Gastrointestinal/Abdominal: Denies: no symptoms, abdomen distended, abdominal pain, black stools, tarry stools, blood in stool, constipated, diarrhea, difficulty swallowing, nausea, poor appetite, poor fluid intake, rectal bleeding , vomiting, other Genitourinary: Denies: no symptoms, burning, discharge, frequency, flank pain, hematuria, incontinence, pain, urgency, other Neurologic/Psychiatric: Denies: no symptoms, anxiety, depressed, emotional problems, headache, numbness, paresthesia, pre-existing deficit, seizure, tingling, tremors, weakness, other Allergies: Coded Allergies: No Known Allergies (Unverified , 10/26/18) Subjective Pt is not in any withdrawal and is not asking for any narcotic. No complain of pain except for occasional chest pain which is associated with COPD. Objective Last 24 Hour Vital Signs Date Time Temp Pulse Resp B/P (MAP) Pulse Ox O2 Delivery O2 Flow Rate FiO2 11/02/18 08:00 99.3 66 20 94/59 (71) 98 11/02/18 06:29 121/68 11/02/18 06:29 61 121/68 11/02/18 06:27 61 121/68 (85) 11/02/18 04:02 98.2 58 17 98/63 (75) 98 11/02/18 00:04 98.2 66 18 114/70 (85) 98 11/01/18 21:28 116/74 11/01/18 21:28 63 116/74 11/01/18 21:00 Room Air 11/01/18 20:55 98.3 63 18 116/74 (88) 99 11/01/18 16:00 98.6 69 20 106/68 (81) 97 11/01/18 16:00 68 11/01/18 14:55 69 118/75 11/01/18 14:55 118/75 11/01/18 12:00 97.3 63 20 110/65 (80) 97 Intake and Output 11/01/18 11/02/18 19:00 07:00 Output Total 900 ml 500 ml Balance -900 ml -500 ml Output Urine Total 900 ml 500 ml # Voids 3 Height (Feet): 5 Height (Inches): 8.00 Weight (Pounds): 145 General Appearance: WD/WN EENT: PERRL/EOMI Neck: non-tender Cardiovascular: normal rate Respiratory/Chest: lungs clear Abdomen: non tender, soft Edema: no edema noted Arm (L), no edema noted Arm (R), no edema noted Leg (L), no edema noted Leg (R), no edema noted Pedal (L), no edema noted Pedal (R), no edema noted Generalized Neurologic: instruction dean II-XII grossly normal, alert, oriented x 3 Mook Enamorado MD Nov 02, 2018 10:03
--- NOTE | 2018-11-02 10:17 | NUR ---
*-* DISCHARGE PLANNING *-* PATIENT HAS BEEN REFERRED TO: [facility] F:[phone] P:[phone]
--- NOTE | 2018-11-02 10:30 | NUR ---
NURSE NOTES: DISCHARGE ORDER RECEIVED FROM DR. CACERES TO DC PATIENT TO SNF. PATIENT MADE AWARE AND INITIALLY REFUSED. [facility] CAME TO EVALUATE THE PATIENT AND AFTERWARDS PATIENT STATES HE WILL DECIDE TO GO TO GIVE HIM SOME TIME TO THINK ABOUT IT.
--- NOTE | 2018-11-02 11:03 | NUR ---
NURSE NOTES: PATIENT REQUESTED TO SPEAK TO VIKY GUILLAUME FROM [facility]. PLACED CALL;PATIENT SPOKE TO HIME AND QUESTIONS ANSWERED. PATIENT NOW AGREES TO GO.
--- NOTE | 2018-11-02 11:12 | NUR ---
*-* DISCHARGE PLANNING *-* PATIENT HAS BEEN DISCAHRGED TO: [facility] ROOM[facility] [address] [facility] T:[phone] FOR NURSE TO NURSE REPORT [facility] HAS BEEN ARRANGED FOR EDUCATIONAL DIAGNOSTICIAN AT [id number]
--- NOTE | 2018-11-02 11:33 | NUR ---
NURSE NOTES: PLACED CALL TO [facility]. GAVE REPORT TO CARLITOS AT FACILITY. AMBULANCE HERE. ALL PATIENTS BELONGINGS PACKED AND SIGNED BY PATIENT.REPORT GIVEN TO AMBULANCE PERSONNEL.
--- NOTE | 2018-11-02 11:46 | General Progress Note ---
Assessment/Plan Problem List: (1) Cocaine abuse ICD Codes: F14.10 - Cocaine abuse, uncomplicated SNOMED: 43895462 (2) encephalopathy due to toxin Status: stable, progressing Assessment/Plan (1) Cocaine abuse ICD Codes: F14.10 - Cocaine abuse, uncomplicated SNOMED: 81814840 (2) encephalopathy due to toxin Status: not improved Assessment/Plan Seroquel prn restraints as needed provided ro/st Subjective Neurologic/Psychiatric: Reports: anxiety Allergies: Coded Allergies: No Known Allergies (Unverified , 10/26/18) Subjective the pts mentation has improved doing well cooperative no acute issues Objective Last 24 Hour Vital Signs Date Time Temp Pulse Resp B/P (MAP) Pulse Ox O2 Delivery O2 Flow Rate FiO2 11/02/18 09:00 Room Air 11/02/18 08:00 99.3 66 20 94/59 (71) 98 11/02/18 06:29 121/68 11/02/18 06:29 61 121/68 11/02/18 06:27 61 121/68 (85) 11/02/18 04:02 98.2 58 17 98/63 (75) 98 11/02/18 00:04 98.2 66 18 114/70 (85) 98 11/01/18 21:28 116/74 11/01/18 21:28 63 116/74 11/01/18 21:00 Room Air 11/01/18 20:55 98.3 63 18 116/74 (88) 99 11/01/18 16:00 98.6 69 20 106/68 (81) 97 11/01/18 16:00 68 11/01/18 14:55 69 118/75 11/01/18 14:55 118/75 11/01/18 12:00 97.3 63 20 110/65 (80) 97 Intake and Output 11/01/18 11/02/18 19:00 07:00 Output Total 900 ml 500 ml Balance -900 ml -500 ml Output Urine Total 900 ml 500 ml # Voids 3 Height (Feet): 5 Height (Inches): 8.00 Weight (Pounds): 145 General Appearance: no apparent distress, alert Neurologic: oriented x 3, responsive, depressed affect Kourtney Lester MD Nov 02, 2018 11:46
[2018-11-02 12:00] VITALS: BP 110/69
--- NOTE | 2018-11-02 22:39 | General Progress Note ---
Assessment/Plan Assessment/Plan Assessment and Recs # Pancytopenia - HEPATITIS C++ new-onset, do not have patient's basleine, could be related to drug abuse, v medications, v etoh, v other toxic ingestion or a bone marrow process --> history of cocaine use recently, and recommend cessation --> us of the abdomen has been reviewed and is neg for hsm /splenomeg/cirrhosis --> hiv is negative --> neupogen to give to maintain anc >1000 --> reverse isolation indicated if low ANC # Anemia of chronic disease --> ferritin is 51, consider gi w/u if drops --> hgb goal >7, transfuse as needed # Chest pain -- r/o Acute coronary syndrome --> cardiology service has been consulted --> asa was given # Cocaine abuse # Hepatitis C The timing of this note does not necessarily reflect the time of the patient was seen Greatly appreciate consultation! Subjective HEENT: Denies: no symptoms, eye pain, blurred vision, tearing, double vision, ear pain, ear discharge, nose pain, nose congestion, throat pain, throat swelling, mouth pain, mouth swelling, other Cardiovascular: Denies: no symptoms, chest pain, edema, irregular heart rate, lightheadedness, palpitations, syncope, other Respiratory: Denies: no symptoms, cough, orthopnea, shortness of breath, SOB with excertion, SOB at rest, sputum, stridor, wheezing, other Gastrointestinal/Abdominal: Denies: no symptoms, abdomen distended, abdominal pain, black stools, tarry stools, blood in stool, constipated, diarrhea, difficulty swallowing, nausea, poor appetite, poor fluid intake, rectal bleeding , vomiting, other Genitourinary: Denies: no symptoms, burning, discharge, frequency, flank pain, hematuria, incontinence, pain, urgency, other Neurologic/Psychiatric: Denies: no symptoms, anxiety, depressed, emotional problems, headache, numbness, paresthesia, pre-existing deficit, seizure, tingling, tremors, weakness, other Endocrine: Denies: no symptoms, excessive sweating, flushing, intolerance to cold, intolerance to heat, increased hunger, increased thirst, increased urine, unexplained weight gain, unexplained weight loss, other Hematologic/Lymphatic: Denies: no symptoms, anemia, easy bleeding, easy bruising, other Allergies: Coded Allergies: No Known Allergies (Unverified , 10/26/18) Subjective 10/28: cbc is pending for today, on reverse isolation, have dw rn 10/29: cbc reordered, results pending, 2d echo pending, seen by pain management he is requesting change to dilaudid 11/02: Pt is seen by bedside, awake and comfortable, no events Objective Last 24 Hour Vital Signs Date Time Temp Pulse Resp B/P (MAP) Pulse Ox O2 Delivery O2 Flow Rate FiO2 11/02/18 12:00 98.0 59 20 110/69 (83) 99 11/02/18 09:00 Room Air 11/02/18 08:00 99.3 66 20 94/59 (71) 98 11/02/18 06:29 121/68 11/02/18 06:29 61 121/68 11/02/18 06:27 61 121/68 (85) 11/02/18 04:02 98.2 58 17 98/63 (75) 98 11/02/18 00:04 98.2 66 18 114/70 (85) 98 Intake and Output 11/01/18 11/02/18 18:59 06:59 Output Total 900 ml 500 ml Balance -900 ml -500 ml Output Urine Total 900 ml 500 ml # Voids 3 Height (Feet): 5 Height (Inches): 8.00 Weight (Pounds): 145 Objective Neck: normal alignment Cardiovascular: regular rhythm Respiratory/Chest: normal breath sounds Extremities: non-tender Edema: 1+ Leg (L), 1+ Leg (R) Neurologic: alert Skin: warm/dry Iván Gonzalez MD Nov 02, 2018 22:39
--- NOTE | 2018-11-03 11:31 | Discharge Summary ---
Discharge Summary Discharge Summary _ DATE OF ADMISSION: 10/26/2018 DATE OF DISCHARGE: 11/02/2018 DISCHARGED BY: Dr. Gr REASON FOR ADMISSION: 73 years old male with past medical history of COPD/asthma , cocaine abuse , presented with complaint of chest pain for 2 days. Chest pain started after snorting cocaine. Chest pain was localized to the substernal area without o radiation, sharp in nature, with multiply episodes. Patient also reported shortness of breath. Patient denied palpitations, diaphoresis, nausea and vomiting. Patient denied fever, chills, cough, abdominal pain. Patient denied recent trauma. Patient never had a stress test. Upon evaluation vital signs were stable , pulse oximetry was stable on room air. Laboratory workup revealed leukopenia with WBC 2.9, hemoglobin 15.5 , hematocrit 46.1, platelet count 170. Stable electrolytes . BUN 13, creatinine 1.2 . AST 82, ALT 118 . Troponin - 0.002. Pro BNP 14. EKG revealed normal sinus rhythm, no acute ischemic changes. Urinalysis revealed pyuria . Urine toxicology screen was positive for cocaine. Chest x-ray revealed no acute cardiopulmonary pathology. Patient was given in emergency department aspirin and subsequently admitted to monitored floor for further management. CONSULTANTS: remote advisor Dr. Fong ID specialist Dr. Evans dry chain puller application architect manager/oncologist Dr. Gonzalez pain specialist Dr. Enamorado [facility] COURSE: Patient initially admitted to monitored floor. Echocardiogram revealed preserved ejection fraction 60%. No evidence of left ventricular hypertrophy. No evidence of wall motion abnormality. Right ventricular systolic pressure of 34. Grade 2 diastolic dysfunction. Serial troponin were negative. EKG revealed no acute ischemic changes. Patient was ruled out for acute myocardial infarction. Per cardiology, chest pain was noncardiac and likely related to cocaine use, since it occurred after use of cocaine. Antiplatelet therapy statin and nitrate were continued. Cardiac Monitor recommended outpatient stress test if recurrence of chest pain. Blood pressure was managed with Cardizem. Supplemental oxygen provided as needed to keep pulse oximetry above 92%; pulmonary toilet was on board as needed. Prior to discharge pulse oximetry was stable on room air. Patient specialist follow. Urine culture grew gram-positive organism. Patient initially was placed on antibiotics. Antibiotic discontinued and infectious disease doctor recommended to observe patient off antibiotics. Abdominal ultrasound was done due to elevated LFT and revealed no acute findings. Hepatitis panel revealed evidence of hepatitis C infection. Tutor followed. Patient had evidence fo pancytopenia, probably related to hepatitic C infection. Anemia work up was consistent with anemia of chronic disease. Hemoglobin and hematocrit were closely monitored with goal to keep hemoglobin above 7. HIV test was nonreactive. Patient will need further monitoring of counts as outpatient. Prior to discharge WBC 3.2, hemoglobin 13, hematocrit 38.9, platelet count 126. Consider outpatient treatment of hepatitis C. Patient was counseled on abstinence from illicit street drugs. Pain management was addressed as per pain specialist recommendations for multiply joint osteoarthritis. Psychiatrist followed amd diagnosed patient with encephalopathy due to toxin. Reality orientation and supportive therapy provided. Patient started on Seroquel on as needed basis. Patient clinically stabilized and was ready for transfer to [facility] under care home care. FINAL DIAGNOSES: Noncardiac chest pain likely due to cocaine abuse Accelerated hypertension History of asthma Transaminitis Pancytopenia Hepatitis C infection Anemia of chronic disease Cocaine abuse Multiply joint osteoarthritis DISCHARGE MEDICATIONS: List of medication was sent to accepting facility DISCHARGE INSTRUCTIONS: Patient was discharged to long term facility/[facility] care home care I have been assigned to dictate discharge summary for this account. I was not involved in the patient's management. Maria Eugenia Paul NP Nov 03, 2018 11:31
--- NOTE | 2018-11-06 09:37 | NUR ---
CASE MANAGEMENT: CM review and clinical information (face sheet/DC summary/ ER MD Note/ H&P) faxed to [facility] @ [phone]. T#[id number].
== END 2018-11-02 12:32 | DRG 203 ==
LOC: EDBD 16:26 → EMR 17:00 → 2E 18:04 → EDBEDREQ 18:51 → 2E 10-28 04:36 → 3E 11-01 20:17
DX: R07.89 Other chest pain (principal); G92 Toxic encephalopathy; D61.818 Other pancytopenia; D63.8 Anemia in other chronic diseases classified elsewhere; J44.9 Chronic obstructive pulmonary disease, unspecified; F14.188 Cocaine abuse with other cocaine-induced disorder; I10 Essential (primary) hypertension; R74.0 Nonspecific elevation of levels of transaminase and lactic acid dehydrogenase [LDH]; B19.20 Unspecified viral hepatitis C without hepatic coma; M15.9 Polyosteoarthritis, unspecified
CPT/HCPCS: 36415; 71045; 76700; 80048; 80053; 80307; 81003; 82728; 83540; 83550; 83615; 83880; 84443; 84484; 85007; 85025; 85044; 85060; 85660; 86703; 86705; 86709; 86803; 87081; 87086; 87340; 93005; 93306; 94664; 94760; 96365; 99285; J7620